=== PATIENT | male | born 1940 | race Caucasian/White ===

== ENCOUNTER 2018-02-16 19:49 | Inpatient (IN) | payer MEDICARE, BC, OTHER ==
[2018-02-16 20:41] LABS: BASO % 0.2 % (0.0-1.0); EOS % 0.2 % (0.0-3.0); HEMATOCRIT 28.6 % (42.0-52.0); HEMOGLOBIN 9.4 g/dl (13.5-17.5); IMMATURE GRANULOCYTE % 0.6 % (0-3.0); LYMPH # 1.4 10^3/uL (1.5-4.5); LYMPH % 11.5 % (24.0-44.0); MEAN CORPUSCULAR HEMOGLOBIN 28.7 pg (27.0-33.0); MEAN CORPUSCULAR HGB CONC 32.9 g/dl (32.0-36.5); MEAN CORPUSCULAR VOLUME 87.5 fl (80.0-96.0); NEUTROPHILS # 9.7 10^3/uL (1.8-7.7); NEUTROPHILS % 79.5 % (36.0-66.0); PLATELET COUNT, AUTOMATED 125 10^3/uL (150-450); RED BLOOD COUNT 3.27 10^6/uL (4.30-6.10); RED CELL DISTRIBUTION WIDTH 14.8 % (11.5-14.5); WHITE BLOOD COUNT 12.2 10^3/uL (4.0-10.0)
[2018-02-16 21:02] LABS: ANION GAP 8 MEQ/L (8-16); BLOOD UREA NITROGEN 23 MG/DL (7-18); CALCIUM LEVEL 8.3 MG/DL (8.8-10.2); CARBON DIOXIDE LEVEL 27 MEQ/L (21-32); CHLORIDE LEVEL 103 MEQ/L (98-107); CREATININE FOR GFR 1.55 MG/DL (0.70-1.30); GLOMERULAR FILTRATION RATE 46.3 (>42); GLUCOSE, FASTING 75 MG/DL (70-100); POTASSIUM SERUM 3.7 MEQ/L (3.5-5.1); SODIUM LEVEL 138 MEQ/L (136-145)
[2018-02-16] MEDS: NORCO, ANEXSIA 5/325MG TABLET (HYDROcodone/ACETAMINOPHEN) PO (21:53)
[2018-02-17] MEDS ORDERED: NITROGLYCERIN 0.4 MG SUBL TABLET SL (00:15)
[2018-02-17] MEDS: BICALUTAMIDE 50 MG TAB PO ×2 (01:41→21:20)
[2018-02-17] MEDS: SERTRALINE HCL 50 MG TAB PO ×2 (01:41→21:20)
[2018-02-17] MEDS: GABAPENTIN 100 MG CAP PO ×4 (01:41→21:20)
[2018-02-17] MEDS: METOPROLOL TART 25 MG TABLET PO ×3 (01:44→21:27)
[2018-02-17] MEDS: NORCO, ANEXSIA 5/325MG TABLET (HYDROcodone/ACETAMINOPHEN) PO ×3 (01:45→18:54)
[2018-02-17 06:25] LABS: BEDSIDE GLUCOSE 76 MG/DL (83-110)
[2018-02-17] MEDS ORDERED: GABAPENTIN 100 MG CAP PO (09:00)
[2018-02-17] MEDS ORDERED: GLIMEPIRIDE 2 MG TAB PO (09:00)
[2018-02-17] MEDS: ASPIRIN 81 MG ENTERIC TAB PO (09:24)
[2018-02-17] MEDS: GLIMEPIRIDE 2 MG TAB PO (09:26)
[2018-02-17] MEDS: ATORVASTATIN 10 MG TAB PO (09:27)
[2018-02-17] MEDS: ISOSORBIDE MON. (IMDUR) 30 MG XR TAB PO (09:27)
[2018-02-17 16:11] LABS: HEMATOCRIT 26.2 % (42.0-52.0); HEMOGLOBIN 8.6 g/dl (13.5-17.5); MEAN CORPUSCULAR HEMOGLOBIN 28.4 pg (27.0-33.0); MEAN CORPUSCULAR HGB CONC 32.8 g/dl (32.0-36.5); MEAN CORPUSCULAR VOLUME 86.5 fl (80.0-96.0); PLATELET COUNT, AUTOMATED 127 10^3/uL (150-450); RED BLOOD COUNT 3.03 10^6/uL (4.30-6.10); RED CELL DISTRIBUTION WIDTH 14.9 % (11.5-14.5); WHITE BLOOD COUNT 10.3 10^3/uL (4.0-10.0)
[2018-02-17 16:26] LABS: ANION GAP 9 MEQ/L (8-16); BLOOD UREA NITROGEN 27 MG/DL (7-18); CALCIUM LEVEL 7.9 MG/DL (8.8-10.2); CARBON DIOXIDE LEVEL 28 MEQ/L (21-32); CHLORIDE LEVEL 103 MEQ/L (98-107); GLOMERULAR FILTRATION RATE 38.9 (>42); GLUCOSE, FASTING 104 MG/DL (70-100); SODIUM LEVEL 140 MEQ/L (136-145)
[2018-02-17] MEDS: HEPARIN DRIP 25,000 UNITS in APPROPRIATE DILUENT 1 EA IV (16:48)
[2018-02-17] MEDS: HEPARIN SOD (PORCINE) 5000 UNITS/ML VIAL IV (16:49)
[2018-02-17 21:18] LABS: HEMATOCRIT 25.5 % (42.0-52.0); HEMOGLOBIN 8.3 g/dl (13.5-17.5)
[2018-02-17 22:06] LABS: PARTIAL THROMBOPLASTIN TIME 62.7 SECONDS (25.4-37.6)
[2018-02-18 03:30] LABS: HEMATOCRIT 28.4 % (42.0-52.0); HEMOGLOBIN 8.9 g/dl (13.5-17.5)
[2018-02-18] MEDS: HEPARIN SOD (PORCINE) 5000 UNITS/ML VIAL IV ×2 (04:54→16:12)
[2018-02-18] MEDS: NORCO, ANEXSIA 5/325MG TABLET (HYDROcodone/ACETAMINOPHEN) PO ×3 (04:59→20:52)
[2018-02-18 06:09] LABS: HEMATOCRIT 26.3 % (42.0-52.0); HEMOGLOBIN 8.5 g/dl (13.5-17.5); MEAN CORPUSCULAR HEMOGLOBIN 28.5 pg (27.0-33.0); MEAN CORPUSCULAR HGB CONC 32.3 g/dl (32.0-36.5); MEAN CORPUSCULAR VOLUME 88.3 fl (80.0-96.0); PLATELET COUNT, AUTOMATED 137 10^3/uL (150-450); RED BLOOD COUNT 2.98 10^6/uL (4.30-6.10); RED CELL DISTRIBUTION WIDTH 15.1 % (11.5-14.5)
[2018-02-18 09:32] LABS: HEMATOCRIT 27.4 % (42.0-52.0); HEMOGLOBIN 8.9 g/dl (13.5-17.5)
[2018-02-18] MEDS: ASPIRIN 81 MG ENTERIC TAB PO (09:57)
[2018-02-18] MEDS: GABAPENTIN 100 MG CAP PO ×3 (09:58→20:27)
[2018-02-18] MEDS: ATORVASTATIN 10 MG TAB PO (09:58)
[2018-02-18] MEDS: METOPROLOL TART 25 MG TABLET PO ×2 (09:59→20:28)
[2018-02-18] MEDS: ISOSORBIDE MON. (IMDUR) 30 MG XR TAB PO (09:59)
[2018-02-18] MEDS: GLIMEPIRIDE 2 MG TAB PO (09:59)
[2018-02-18] MEDS: HEPARIN DRIP 25,000 UNITS in APPROPRIATE DILUENT 1 EA IV (13:43)
[2018-02-18 15:31] LABS: HEMOGLOBIN 8.6 g/dl (13.5-17.5)
[2018-02-18 15:45] LABS: PARTIAL THROMBOPLASTIN TIME 57.4 SECONDS (25.4-37.6)
[2018-02-18] MEDS: SERTRALINE HCL 50 MG TAB PO (20:27)
[2018-02-18] MEDS: BICALUTAMIDE 50 MG TAB PO (20:27)
[2018-02-18 21:38] LABS: HEMATOCRIT 24.7 % (42.0-52.0); HEMOGLOBIN 8.1 g/dl (13.5-17.5)
[2018-02-18 21:51] LABS: PARTIAL THROMBOPLASTIN TIME 118.2 SECONDS (25.4-37.6)
[2018-02-19 03:32] LABS: HEMATOCRIT 26.9 % (42.0-52.0); HEMOGLOBIN 8.7 g/dl (13.5-17.5)
[2018-02-19 03:48] LABS: PARTIAL THROMBOPLASTIN TIME 82.8 SECONDS (25.4-37.6)
[2018-02-19] MEDS: HEPARIN DRIP 25,000 UNITS in APPROPRIATE DILUENT 1 EA IV (07:36)
[2018-02-19] MEDS: ASPIRIN 81 MG ENTERIC TAB PO (09:26)
[2018-02-19] MEDS: ATORVASTATIN 10 MG TAB PO (09:26)
[2018-02-19] MEDS: METOPROLOL TART 25 MG TABLET PO ×2 (09:26→21:42)
[2018-02-19] MEDS: GABAPENTIN 100 MG CAP PO ×3 (09:27→21:41)
[2018-02-19] MEDS: ISOSORBIDE MON. (IMDUR) 30 MG XR TAB PO (09:27)
[2018-02-19] MEDS: GLIMEPIRIDE 2 MG TAB PO (09:27)
[2018-02-19 10:39] LABS: HEMATOCRIT 26.7 % (42.0-52.0); HEMOGLOBIN 8.5 g/dl (13.5-17.5)
[2018-02-19 11:06] LABS: PARTIAL THROMBOPLASTIN TIME 58.5 SECONDS (25.4-37.6)
[2018-02-19] MEDS: HEPARIN SOD (PORCINE) 5000 UNITS/ML VIAL IV (12:00)
[2018-02-19] MEDS: NORCO, ANEXSIA 5/325MG TABLET (HYDROcodone/ACETAMINOPHEN) PO ×2 (14:13→21:43)
[2018-02-19 16:36] LABS: HEMATOCRIT 24.7 % (42.0-52.0); HEMOGLOBIN 8.2 g/dl (13.5-17.5)
[2018-02-19] MEDS: BICALUTAMIDE 50 MG TAB PO (21:41)
[2018-02-19] MEDS: SERTRALINE HCL 50 MG TAB PO (21:41)
[2018-02-19 22:33] LABS: HEMATOCRIT 25.5 % (42.0-52.0); HEMOGLOBIN 8.3 g/dl (13.5-17.5)
[2018-02-19 22:46] LABS: PARTIAL THROMBOPLASTIN TIME 83.2 SECONDS (25.4-37.6)
[2018-02-19] MEDS: DEXTROSE 50% 50 ML SYRINGE IV (23:55)
[2018-02-19 23:58] LABS: BEDSIDE GLUCOSE 21 MG/DL (83-110)
[2018-02-19 23:59] LABS: BEDSIDE GLUCOSE 175 MG/DL (83-110)
[2018-02-20] MEDS: HEPARIN DRIP 25,000 UNITS in APPROPRIATE DILUENT 1 EA IV (01:13)
[2018-02-20 05:34] LABS: HEMATOCRIT 26.4 % (42.0-52.0); HEMOGLOBIN 8.5 g/dl (13.5-17.5)
[2018-02-20 05:46] LABS: PARTIAL THROMBOPLASTIN TIME 78.7 SECONDS (25.4-37.6)
[2018-02-20] MEDS ORDERED: GLUCAGON FOR INJ 1 MG VIAL (J1610) SC (06:30)
[2018-02-20 06:39] LABS: BEDSIDE GLUCOSE 23 MG/DL (83-110)
[2018-02-20] MEDS: DEXTROSE 50% 50 ML SYRINGE IV (06:43)
[2018-02-20 06:47] LABS: BEDSIDE GLUCOSE 24 MG/DL (83-110)
[2018-02-20 06:58] LABS: BEDSIDE GLUCOSE CONFIRMATION 33 MG/DL (LESS THAN 200)
[2018-02-20 06:59] LABS: BEDSIDE GLUCOSE 80 MG/DL (83-110)
[2018-02-20] MEDS: HumaLOG INSULIN (NovoLOG) PER UNIT SC ×4 (07:30→20:15)
[2018-02-20] MEDS: ATORVASTATIN 10 MG TAB PO (10:02)
[2018-02-20] MEDS: GLIMEPIRIDE 2 MG TAB PO (10:02)
[2018-02-20] MEDS: ASPIRIN 81 MG ENTERIC TAB PO (10:03)
[2018-02-20] MEDS: GABAPENTIN 100 MG CAP PO ×3 (10:03→20:15)
[2018-02-20] MEDS: METOPROLOL TART 25 MG TABLET PO ×2 (10:03→20:15)
[2018-02-20 11:12] LABS: HEMATOCRIT 25.3 % (42.0-52.0); HEMOGLOBIN 8.1 g/dl (13.5-17.5)
[2018-02-20 11:51] LABS: BEDSIDE GLUCOSE 45 MG/DL (83-110)
[2018-02-20] MEDS: ISOSORBIDE MON. (IMDUR) 30 MG XR TAB PO (12:15)
[2018-02-20 12:24] LABS: BEDSIDE GLUCOSE 48 MG/DL (83-110)
[2018-02-20 12:46] LABS: BEDSIDE GLUCOSE 64 MG/DL (83-110)
[2018-02-20 13:39] LABS: BEDSIDE GLUCOSE 96 MG/DL (83-110)
[2018-02-20 15:41] LABS: HEMOGLOBIN 8.2 g/dl (13.5-17.5)
[2018-02-20] MEDS: GLUCOSE 4 GM CHEW TABLET PO ×2 (17:22→17:28)
[2018-02-20 18:03] LABS: BEDSIDE GLUCOSE 37 MG/DL (83-110)
[2018-02-20 18:05] LABS: BEDSIDE GLUCOSE 37 MG/DL (83-110)
[2018-02-20 18:42] LABS: BEDSIDE GLUCOSE 68 MG/DL (83-110)
[2018-02-20 19:46] LABS: BEDSIDE GLUCOSE 116 MG/DL (83-110)
[2018-02-20] MEDS: D5W/0.45% SODIUM CHLORIDE 1,000 ML IV (20:14)
[2018-02-20] MEDS: SERTRALINE HCL 50 MG TAB PO (20:15)
[2018-02-20] MEDS: BICALUTAMIDE 50 MG TAB PO (20:15)
[2018-02-20 21:49] LABS: HEMATOCRIT 24.2 % (42.0-52.0); HEMOGLOBIN 7.8 g/dl (13.5-17.5)
[2018-02-20 23:45] LABS: BEDSIDE GLUCOSE 153 MG/DL (83-110)
[2018-02-21] MEDS: NORCO, ANEXSIA 5/325MG TABLET (HYDROcodone/ACETAMINOPHEN) PO ×2 (00:13→09:49)
[2018-02-21] MEDS: HEPARIN DRIP 25,000 UNITS in APPROPRIATE DILUENT 1 EA IV (02:56)
[2018-02-21 04:02] LABS: HEMATOCRIT 23.8 % (42.0-52.0); HEMOGLOBIN 7.6 g/dl (13.5-17.5)
[2018-02-21] MEDS: D5W/0.45% SODIUM CHLORIDE 1,000 ML IV (04:28)
[2018-02-21 06:30] LABS: BEDSIDE GLUCOSE 78 MG/DL (83-110)
[2018-02-21] MEDS: HumaLOG INSULIN (NovoLOG) PER UNIT SC ×4 (07:30→20:03)
[2018-02-21 08:54] LABS: HEMATOCRIT 24.5 % (42.0-52.0); HEMOGLOBIN 7.7 g/dl (13.5-17.5)
[2018-02-21] MEDS: ISOSORBIDE MON. (IMDUR) 30 MG XR TAB PO (09:14)
[2018-02-21] MEDS: ATORVASTATIN 10 MG TAB PO (09:15)
[2018-02-21] MEDS: GABAPENTIN 100 MG CAP PO ×3 (09:15→20:21)
[2018-02-21] MEDS: METOPROLOL TART 25 MG TABLET PO ×2 (09:15→20:22)
[2018-02-21] MEDS: ASPIRIN 81 MG ENTERIC TAB PO (09:15)
[2018-02-21 11:47] LABS: BEDSIDE GLUCOSE 141 MG/DL (83-110)
[2018-02-21 15:11] LABS: HEMATOCRIT 23.2 % (42.0-52.0); HEMOGLOBIN 7.6 g/dl (13.5-17.5)
[2018-02-21] MEDS: NS 1,000 ML IV (16:00)
[2018-02-21 17:24] LABS: BEDSIDE GLUCOSE 167 MG/DL (83-110)
[2018-02-21] MEDS: IPRATROPIUM 0.5MG/ALBUTEROL 2.5MG INH SOL UD 3ML (DUONEB)(J7620) NEB (18:03)
[2018-02-21 19:39] LABS: BEDSIDE GLUCOSE 166 MG/DL (83-110)
[2018-02-21] MEDS: BICALUTAMIDE 50 MG TAB PO (20:21)
[2018-02-21] MEDS: SERTRALINE HCL 50 MG TAB PO (20:21)
[2018-02-21 21:53] LABS: IMMEDIATE SPIN CROSSMATCH 1 2
[2018-02-22] MEDS: IPRATROPIUM 0.5MG/ALBUTEROL 2.5MG INH SOL UD 3ML (DUONEB)(J7620) NEB (00:42)
[2018-02-22] MEDS: NORCO, ANEXSIA 5/325MG TABLET (HYDROcodone/ACETAMINOPHEN) PO (01:47)
[2018-02-22 02:47] LABS: HEMATOCRIT 27.1 % (42.0-52.0); HEMOGLOBIN 8.9 g/dl (13.5-17.5)
[2018-02-22] MEDS: D5W/0.45% SODIUM CHLORIDE 1,000 ML IV ×2 (05:17→21:56)
[2018-02-22 05:51] LABS: BEDSIDE GLUCOSE 176 MG/DL (83-110)
[2018-02-22 07:48] LABS: BEDSIDE GLUCOSE 205 MG/DL (83-110)
[2018-02-22] MEDS: HumaLOG INSULIN (NovoLOG) PER UNIT SC ×4 (09:04→21:00)
[2018-02-22] MEDS: ISOSORBIDE MON. (IMDUR) 30 MG XR TAB PO (09:05)
[2018-02-22] MEDS: GABAPENTIN 100 MG CAP PO ×3 (09:05→21:56)
[2018-02-22] MEDS: ATORVASTATIN 10 MG TAB PO (09:05)
[2018-02-22] MEDS: METOPROLOL TART 25 MG TABLET PO ×2 (09:05→21:56)
[2018-02-22] MEDS: ASPIRIN 81 MG ENTERIC TAB PO (09:05)
[2018-02-22 09:51] LABS: HEMATOCRIT 28.5 % (42.0-52.0); HEMOGLOBIN 9.3 g/dl (13.5-17.5)
[2018-02-22 11:55] LABS: BEDSIDE GLUCOSE 164 MG/DL (83-110)
[2018-02-22 15:10] LABS: HEMATOCRIT 26.8 % (42.0-52.0)
[2018-02-22] MEDS: NS 1,000 ML IV (15:38)
[2018-02-22 17:14] LABS: BEDSIDE GLUCOSE 143 MG/DL (83-110)
[2018-02-22 21:29] LABS: HEMATOCRIT 26.7 % (42.0-52.0); HEMOGLOBIN 8.7 g/dl (13.5-17.5)
[2018-02-22] MEDS: SERTRALINE HCL 50 MG TAB PO (21:55)
[2018-02-22] MEDS: BICALUTAMIDE 50 MG TAB PO (21:57)
[2018-02-22 22:03] LABS: BEDSIDE GLUCOSE 150 MG/DL (83-110)
[2018-02-23 05:23] LABS: HEMATOCRIT 27.8 % (42.0-52.0)
[2018-02-23 08:13] LABS: BEDSIDE GLUCOSE 123 MG/DL (83-110)
[2018-02-23] MEDS: ASPIRIN 81 MG ENTERIC TAB PO (09:23)
[2018-02-23] MEDS: GABAPENTIN 100 MG CAP PO ×3 (09:23→20:43)
[2018-02-23] MEDS: ATORVASTATIN 10 MG TAB PO (09:23)
[2018-02-23] MEDS: HumaLOG INSULIN (NovoLOG) PER UNIT SC ×4 (09:24→21:00)
[2018-02-23] MEDS: METOPROLOL TART 25 MG TABLET PO ×2 (09:24→20:44)
[2018-02-23] MEDS: ISOSORBIDE MON. (IMDUR) 30 MG XR TAB PO (09:24)
[2018-02-23 10:18] LABS: HEMATOCRIT 28.5 % (42.0-52.0); HEMOGLOBIN 9.2 g/dl (13.5-17.5)
[2018-02-23 11:35] LABS: BEDSIDE GLUCOSE 137 MG/DL (83-110)
[2018-02-23] MEDS: NORCO, ANEXSIA 5/325MG TABLET (HYDROcodone/ACETAMINOPHEN) PO ×2 (12:10→20:42)
[2018-02-23] MEDS: D5W/0.45% SODIUM CHLORIDE 1,000 ML IV (14:40)
[2018-02-23 16:05] LABS: HEMATOCRIT 26.2 % (42.0-52.0); HEMOGLOBIN 8.7 g/dl (13.5-17.5)
[2018-02-23 17:06] LABS: BEDSIDE GLUCOSE 163 MG/DL (83-110)
[2018-02-23] MEDS: NS 1,000 ML IV (18:09)
[2018-02-23] MEDS: BICALUTAMIDE 50 MG TAB PO (20:42)
[2018-02-23] MEDS: SERTRALINE HCL 50 MG TAB PO (20:43)
[2018-02-23 21:24] LABS: BEDSIDE GLUCOSE 157 MG/DL (83-110)
[2018-02-23 21:24] LABS: HEMATOCRIT 27.4 % (42.0-52.0); HEMOGLOBIN 8.7 g/dl (13.5-17.5)
[2018-02-24 03:44] LABS: HEMATOCRIT 28.3 % (42.0-52.0)
[2018-02-24 05:49] LABS: BEDSIDE GLUCOSE 100 MG/DL (83-110)
[2018-02-24] MEDS: HumaLOG INSULIN (NovoLOG) PER UNIT SC ×4 (07:30→20:35)
[2018-02-24] MEDS: ATORVASTATIN 10 MG TAB PO (08:49)
[2018-02-24] MEDS: GABAPENTIN 100 MG CAP PO ×3 (08:49→20:34)
[2018-02-24] MEDS: ASPIRIN 81 MG ENTERIC TAB PO (08:49)
[2018-02-24] MEDS: ISOSORBIDE MON. (IMDUR) 30 MG XR TAB PO (08:52)
[2018-02-24] MEDS: METOPROLOL TART 25 MG TABLET PO ×2 (08:52→20:34)
[2018-02-24 09:32] LABS: HEMATOCRIT 28.9 % (42.0-52.0); HEMOGLOBIN 9.3 g/dl (13.5-17.5)
[2018-02-24 11:50] LABS: BEDSIDE GLUCOSE 112 MG/DL (83-110)
[2018-02-24 15:51] LABS: HEMATOCRIT 27.1 % (42.0-52.0); HEMOGLOBIN 8.6 g/dl (13.5-17.5)
[2018-02-24 16:58] LABS: BEDSIDE GLUCOSE 98 MG/DL (83-110)
[2018-02-24 20:06] LABS: BEDSIDE GLUCOSE 154 MG/DL (83-110)
[2018-02-24] MEDS: NORCO, ANEXSIA 5/325MG TABLET (HYDROcodone/ACETAMINOPHEN) PO (20:35)
[2018-02-24] MEDS: SERTRALINE HCL 50 MG TAB PO (20:35)
[2018-02-24] MEDS: BICALUTAMIDE 50 MG TAB PO (20:35)
[2018-02-24 21:00] LABS: HEMATOCRIT 26.3 % (42.0-52.0); HEMOGLOBIN 8.6 g/dl (13.5-17.5)
[2018-02-25 06:55] LABS: HEMATOCRIT 27.5 % (42.0-52.0); HEMOGLOBIN 8.8 g/dl (13.5-17.5); MEAN CORPUSCULAR HEMOGLOBIN 28.1 pg (27.0-33.0); MEAN CORPUSCULAR VOLUME 87.9 fl (80.0-96.0); PLATELET COUNT, AUTOMATED 221 10^3/uL (150-450); RED BLOOD COUNT 3.13 10^6/uL (4.30-6.10); RED CELL DISTRIBUTION WIDTH 15.9 % (11.5-14.5); WHITE BLOOD COUNT 13.7 10^3/uL (4.0-10.0)
[2018-02-25 07:20] LABS: ALBUMIN 2.3 GM/DL (3.2-5.2); ALBUMIN/GLOBULIN RATIO 0.52 (1.00-1.93); ALKALINE PHOSPHATASE 42 U/L (45-117); ALT/SGPT 69 U/L (12-78); ANION GAP 8 MEQ/L (8-16); AST/SGOT 102 U/L (7-37); BLOOD UREA NITROGEN 31 MG/DL (7-18); CALCIUM LEVEL 8.1 MG/DL (8.8-10.2); CARBON DIOXIDE LEVEL 24 MEQ/L (21-32); CHLORIDE LEVEL 105 MEQ/L (98-107); CREATININE FOR GFR 1.55 MG/DL (0.70-1.30); GLOMERULAR FILTRATION RATE 46.3 (>42); GLUCOSE, FASTING 110 MG/DL (70-100); POTASSIUM SERUM 4.3 MEQ/L (3.5-5.1); SODIUM LEVEL 137 MEQ/L (136-145); TOTAL PROTEIN 6.7 GM/DL (6.4-8.2)
[2018-02-25] MEDS: HumaLOG INSULIN (NovoLOG) PER UNIT SC ×4 (09:06→21:00)
[2018-02-25] MEDS: ASPIRIN 81 MG ENTERIC TAB PO (09:07)
[2018-02-25] MEDS: ATORVASTATIN 10 MG TAB PO (09:07)
[2018-02-25] MEDS: GABAPENTIN 100 MG CAP PO ×3 (09:07→21:11)
[2018-02-25] MEDS: ISOSORBIDE MON. (IMDUR) 30 MG XR TAB PO (09:07)
[2018-02-25] MEDS: METOPROLOL TART 25 MG TABLET PO ×2 (09:07→21:12)
[2018-02-25 12:15] LABS: BEDSIDE GLUCOSE 130 MG/DL (83-110)
[2018-02-25 17:04] LABS: BEDSIDE GLUCOSE 107 MG/DL (83-110)
[2018-02-25] MEDS: NORCO, ANEXSIA 5/325MG TABLET (HYDROcodone/ACETAMINOPHEN) PO ×2 (17:28→21:11)
[2018-02-25 20:59] LABS: BEDSIDE GLUCOSE 102 MG/DL (83-110)
[2018-02-25] MEDS: SENNA 8.6 MG TAB (SENOKOT) PO (21:00)
[2018-02-25] MEDS: DOCUSATE SODIUM 100 MG CAP PO (21:00)
[2018-02-25] MEDS: BICALUTAMIDE 50 MG TAB PO (21:10)
[2018-02-25] MEDS: SERTRALINE HCL 50 MG TAB PO (21:11)
[2018-02-26 06:28] LABS: BEDSIDE GLUCOSE 102 MG/DL (83-110)
[2018-02-26] MEDS: HumaLOG INSULIN (NovoLOG) PER UNIT SC ×4 (07:30→21:00)
[2018-02-26 07:36] LABS: HEMATOCRIT 29.1 % (42.0-52.0); HEMOGLOBIN 9.2 g/dl (13.5-17.5); MEAN CORPUSCULAR HEMOGLOBIN 27.9 pg (27.0-33.0); MEAN CORPUSCULAR HGB CONC 31.6 g/dl (32.0-36.5); MEAN CORPUSCULAR VOLUME 88.2 fl (80.0-96.0); PLATELET COUNT, AUTOMATED 214 10^3/uL (150-450); RED CELL DISTRIBUTION WIDTH 15.9 % (11.5-14.5); WHITE BLOOD COUNT 14.4 10^3/uL (4.0-10.0)
[2018-02-26 07:57] LABS: ANION GAP 9 MEQ/L (8-16); BLOOD UREA NITROGEN 27 MG/DL (7-18); CALCIUM LEVEL 8.3 MG/DL (8.8-10.2); CARBON DIOXIDE LEVEL 24 MEQ/L (21-32); CHLORIDE LEVEL 105 MEQ/L (98-107); CREATININE FOR GFR 1.46 MG/DL (0.70-1.30); GLOMERULAR FILTRATION RATE 49.6 (>42); GLUCOSE, FASTING 99 MG/DL (70-100); POTASSIUM SERUM 4.5 MEQ/L (3.5-5.1); SODIUM LEVEL 138 MEQ/L (136-145)
[2018-02-26] MEDS: DOCUSATE SODIUM 100 MG CAP PO ×2 (08:57→21:44)
[2018-02-26] MEDS: METOPROLOL TART 25 MG TABLET PO ×2 (08:57→21:45)
[2018-02-26] MEDS: ASPIRIN 81 MG ENTERIC TAB PO (08:57)
[2018-02-26] MEDS: GABAPENTIN 100 MG CAP PO ×3 (08:57→21:44)
[2018-02-26] MEDS: ISOSORBIDE MON. (IMDUR) 30 MG XR TAB PO (08:57)
[2018-02-26] MEDS: ATORVASTATIN 10 MG TAB PO (08:57)
[2018-02-26] MEDS: NORCO, ANEXSIA 5/325MG TABLET (HYDROcodone/ACETAMINOPHEN) PO (10:49)
[2018-02-26 11:58] LABS: BEDSIDE GLUCOSE 121 MG/DL (83-110)
[2018-02-26 16:53] LABS: BEDSIDE GLUCOSE 93 MG/DL (83-110)
[2018-02-26 20:37] LABS: BEDSIDE GLUCOSE 190 MG/DL (83-110)
[2018-02-26] MEDS: BICALUTAMIDE 50 MG TAB PO (21:44)
[2018-02-26] MEDS: SERTRALINE HCL 50 MG TAB PO (21:44)
[2018-02-26] MEDS: SENNA 8.6 MG TAB (SENOKOT) PO (21:44)
[2018-02-27] MEDS: HumaLOG INSULIN (NovoLOG) PER UNIT SC ×4 (07:30→20:30)
[2018-02-27 08:03] LABS: BEDSIDE GLUCOSE 130 MG/DL (83-110)
[2018-02-27] MEDS: GABAPENTIN 100 MG CAP PO ×3 (09:00→20:30)
[2018-02-27] MEDS: DOCUSATE SODIUM 100 MG CAP PO ×2 (09:00→20:29)
[2018-02-27] MEDS: ASPIRIN 81 MG ENTERIC TAB PO (09:49)
[2018-02-27] MEDS: ATORVASTATIN 10 MG TAB PO (09:50)
[2018-02-27] MEDS: METOPROLOL TART 25 MG TABLET PO ×2 (09:50→20:30)
[2018-02-27] MEDS: ISOSORBIDE MON. (IMDUR) 30 MG XR TAB PO (09:50)
[2018-02-27] MEDS ORDERED: HEPARIN 1,000 UNITS/ML 10ML VIAL (FOR RADIOLOGY& DIALYSIS ONLY) As Ordered (10:08)
[2018-02-27] MEDS ORDERED: ISOVUE-300 61% 50ML VIAL (Q9967) As Ordered (10:09)
[2018-02-27 12:29] LABS: BEDSIDE GLUCOSE 118 MG/DL (83-110)
[2018-02-27] MEDS: PIPERACILLIN/TAZOBACTAM SOD 3.375 GM in D5W MINI-BAG PLUS 50 ML IV ×2 (12:42→18:56)
[2018-02-27] MEDS: NS 0.45% 1,000 ML IV (12:42)
[2018-02-27 16:32] LABS: BEDSIDE GLUCOSE 131 MG/DL (83-110)
[2018-02-27 20:17] LABS: BEDSIDE GLUCOSE 144 MG/DL (83-110)
[2018-02-27] MEDS: SENNA 8.6 MG TAB (SENOKOT) PO (20:30)
[2018-02-27] MEDS: BICALUTAMIDE 50 MG TAB PO (20:30)
[2018-02-27] MEDS: SERTRALINE HCL 50 MG TAB PO (20:30)
[2018-02-28] MEDS: PIPERACILLIN/TAZOBACTAM SOD 3.375 GM in D5W MINI-BAG PLUS 50 ML IV ×3 (02:19→18:41)
[2018-02-28 06:05] LABS: BEDSIDE GLUCOSE 129 MG/DL (83-110)
[2018-02-28] MEDS: GABAPENTIN 100 MG CAP PO ×3 (09:03→21:26)
[2018-02-28] MEDS: HumaLOG INSULIN (NovoLOG) PER UNIT SC ×4 (09:03→21:00)
[2018-02-28] MEDS: ASPIRIN 81 MG ENTERIC TAB PO (09:04)
[2018-02-28] MEDS: METOPROLOL TART 25 MG TABLET PO ×2 (09:04→21:27)
[2018-02-28] MEDS: DOCUSATE SODIUM 100 MG CAP PO ×2 (09:04→21:26)
[2018-02-28] MEDS: ATORVASTATIN 10 MG TAB PO (09:04)
[2018-02-28] MEDS: ISOSORBIDE MON. (IMDUR) 30 MG XR TAB PO (09:04)
[2018-02-28 11:40] LABS: BEDSIDE GLUCOSE 160 MG/DL (83-110)
[2018-02-28 16:54] LABS: BEDSIDE GLUCOSE 128 MG/DL (83-110)
[2018-02-28] MEDS: NORCO, ANEXSIA 5/325MG TABLET (HYDROcodone/ACETAMINOPHEN) PO (18:41)
[2018-02-28 20:02] LABS: BEDSIDE GLUCOSE 124 MG/DL (83-110)
[2018-02-28] MEDS: SENNA 8.6 MG TAB (SENOKOT) PO (21:26)
[2018-02-28] MEDS: SERTRALINE HCL 50 MG TAB PO (21:26)
[2018-02-28] MEDS: BICALUTAMIDE 50 MG TAB PO (21:26)
[2018-03-01] MEDS: NORCO, ANEXSIA 5/325MG TABLET (HYDROcodone/ACETAMINOPHEN) PO ×3 (01:07→15:21)
[2018-03-01] MEDS: PIPERACILLIN/TAZOBACTAM SOD 3.375 GM in D5W MINI-BAG PLUS 50 ML IV ×3 (03:59→18:39)
[2018-03-01 06:01] LABS: BEDSIDE GLUCOSE 115 MG/DL (83-110)
[2018-03-01] MEDS: HumaLOG INSULIN (NovoLOG) PER UNIT SC ×4 (07:30→20:42)
[2018-03-01] MEDS: GABAPENTIN 100 MG CAP PO ×3 (10:46→20:42)
[2018-03-01] MEDS: ISOSORBIDE MON. (IMDUR) 30 MG XR TAB PO (10:47)
[2018-03-01] MEDS: ATORVASTATIN 10 MG TAB PO (10:47)
[2018-03-01] MEDS: ASPIRIN 81 MG ENTERIC TAB PO (10:47)
[2018-03-01] MEDS: DOCUSATE SODIUM 100 MG CAP PO ×2 (10:48→20:42)
[2018-03-01] MEDS: METOPROLOL TART 25 MG TABLET PO ×2 (10:48→20:42)
[2018-03-01 11:56] LABS: BEDSIDE GLUCOSE 154 MG/DL (83-110)
[2018-03-01 16:54] LABS: BEDSIDE GLUCOSE 120 MG/DL (83-110)
[2018-03-01 20:32] LABS: BEDSIDE GLUCOSE 118 MG/DL (83-110)
[2018-03-01] MEDS: SENNA 8.6 MG TAB (SENOKOT) PO (20:42)
[2018-03-01] MEDS: SERTRALINE HCL 50 MG TAB PO (20:42)
[2018-03-01] MEDS: BICALUTAMIDE 50 MG TAB PO (20:42)
[2018-03-02] MEDS: PIPERACILLIN/TAZOBACTAM SOD 3.375 GM in D5W MINI-BAG PLUS 50 ML IV ×4 (03:59→20:11)
[2018-03-02 06:15] LABS: BEDSIDE GLUCOSE 105 MG/DL (83-110)
[2018-03-02] MEDS: HumaLOG INSULIN (NovoLOG) PER UNIT SC ×4 (06:58→20:09)
[2018-03-02] MEDS: ASPIRIN 81 MG ENTERIC TAB PO (10:57)
[2018-03-02] MEDS: GABAPENTIN 100 MG CAP PO ×3 (10:57→20:08)
[2018-03-02] MEDS: METOPROLOL TART 25 MG TABLET PO ×2 (10:57→20:09)
[2018-03-02] MEDS: DOCUSATE SODIUM 100 MG CAP PO ×2 (10:57→20:08)
[2018-03-02] MEDS: NORCO, ANEXSIA 5/325MG TABLET (HYDROcodone/ACETAMINOPHEN) PO ×2 (10:58→20:09)
[2018-03-02] MEDS: ISOSORBIDE MON. (IMDUR) 30 MG XR TAB PO (10:58)
[2018-03-02] MEDS: ATORVASTATIN 10 MG TAB PO (10:58)
[2018-03-02 12:12] LABS: BEDSIDE GLUCOSE 131 MG/DL (83-110)
[2018-03-02] MEDS ORDERED: LIDOCAINE 2% INJ 100 MG/5 ML SDV (FOR ANES.) As Ordered (16:50)
[2018-03-02] MEDS ORDERED: dexameTHASONE 4 MG/ML 1ML VIAL (J1100) As Ordered (16:50)
[2018-03-02] MEDS ORDERED: ONDANSETRON 4MG/2ML VIAL (J2405) As Ordered (16:50)
[2018-03-02] MEDS ORDERED: PROPOFOL 200 MG/20 ML VIAL As Ordered (16:50)
[2018-03-02] MEDS ORDERED: fentaNYL 100 MCG/2 ML INJECTION (J3010) As Ordered (16:51)
[2018-03-02] MEDS ORDERED: MIDAZOLAM INJ 2 MG/2 ML VIAL (J2250) As Ordered (16:51)
[2018-03-02 19:14] LABS: BEDSIDE GLUCOSE 103 MG/DL (83-110)
[2018-03-02] MEDS ORDERED: fentaNYL 100 MCG/2 ML INJECTION (J3010) IV (19:15)
[2018-03-02] MEDS: LR 1,000 ML IV (19:15)
[2018-03-02] MEDS ORDERED: ONDANSETRON 4MG/2ML VIAL (J2405) IV (19:15)
[2018-03-02] MEDS: BICALUTAMIDE 50 MG TAB PO (20:08)
[2018-03-02] MEDS: SERTRALINE HCL 50 MG TAB PO (20:08)
[2018-03-02] MEDS: SENNA 8.6 MG TAB (SENOKOT) PO (20:08)
[2018-03-02 20:12] LABS: BEDSIDE GLUCOSE 99 MG/DL (83-110)
[2018-03-03] MEDS: NORCO, ANEXSIA 5/325MG TABLET (HYDROcodone/ACETAMINOPHEN) PO ×4 (00:01→22:03)
[2018-03-03] MEDS ORDERED: NORCO, ANEXSIA 5/325MG TABLET (HYDROcodone/ACETAMINOPHEN) As Ordered (00:58)
[2018-03-03] MEDS: PIPERACILLIN/TAZOBACTAM SOD 3.375 GM in D5W MINI-BAG PLUS 50 ML IV ×3 (03:06→18:02)
[2018-03-03 05:37] LABS: BEDSIDE GLUCOSE 107 MG/DL (83-110)
[2018-03-03] MEDS: HumaLOG INSULIN (NovoLOG) PER UNIT SC ×4 (07:29→21:00)
[2018-03-03] MEDS: ISOSORBIDE MON. (IMDUR) 30 MG XR TAB PO (08:34)
[2018-03-03] MEDS: ASPIRIN 81 MG ENTERIC TAB PO (08:34)
[2018-03-03] MEDS: ATORVASTATIN 10 MG TAB PO (08:34)
[2018-03-03] MEDS: GABAPENTIN 100 MG CAP PO ×3 (08:35→22:02)
[2018-03-03] MEDS: METOPROLOL TART 25 MG TABLET PO ×2 (08:35→22:04)
[2018-03-03] MEDS: DOCUSATE SODIUM 100 MG CAP PO ×2 (08:35→22:02)
[2018-03-03 11:44] LABS: BEDSIDE GLUCOSE 137 MG/DL (83-110)
[2018-03-03 16:42] LABS: BEDSIDE GLUCOSE 164 MG/DL (83-110)
[2018-03-03 21:10] LABS: BEDSIDE GLUCOSE 209 MG/DL (83-110)
[2018-03-03] MEDS: SENNA 8.6 MG TAB (SENOKOT) PO (22:02)
[2018-03-03] MEDS: SERTRALINE HCL 50 MG TAB PO (22:03)
[2018-03-03] MEDS: BICALUTAMIDE 50 MG TAB PO (22:06)
[2018-03-04] MEDS: PIPERACILLIN/TAZOBACTAM SOD 3.375 GM in D5W MINI-BAG PLUS 50 ML IV ×3 (02:37→18:12)
[2018-03-04] MEDS: NORCO, ANEXSIA 5/325MG TABLET (HYDROcodone/ACETAMINOPHEN) PO ×2 (06:10→20:33)
[2018-03-04] MEDS: HumaLOG INSULIN (NovoLOG) PER UNIT SC ×4 (07:30→20:35)
[2018-03-04] MEDS: ISOSORBIDE MON. (IMDUR) 30 MG XR TAB PO (08:43)
[2018-03-04] MEDS: DOCUSATE SODIUM 100 MG CAP PO ×2 (08:43→20:32)
[2018-03-04] MEDS: ASPIRIN 81 MG ENTERIC TAB PO (08:43)
[2018-03-04] MEDS: GABAPENTIN 100 MG CAP PO ×3 (08:43→20:33)
[2018-03-04] MEDS: METOPROLOL TART 25 MG TABLET PO ×2 (08:43→20:35)
[2018-03-04] MEDS: ATORVASTATIN 10 MG TAB PO (08:43)
[2018-03-04] MEDS: SENNA 8.6 MG TAB (SENOKOT) PO (20:32)
[2018-03-04] MEDS: SERTRALINE HCL 50 MG TAB PO (20:32)
[2018-03-04] MEDS: BICALUTAMIDE 50 MG TAB PO (20:35)
[2018-03-05 02:21] LABS: BEDSIDE GLUCOSE 135 MG/DL (83-110)
[2018-03-05 02:21] LABS: BEDSIDE GLUCOSE 135 MG/DL (83-110)
[2018-03-05 02:21] LABS: BEDSIDE GLUCOSE 137 MG/DL (83-110)
[2018-03-05 02:21] LABS: BEDSIDE GLUCOSE 141 MG/DL (83-110)
[2018-03-05 02:21] LABS: BEDSIDE GLUCOSE 144 MG/DL (83-110)
[2018-03-05] MEDS: PIPERACILLIN/TAZOBACTAM SOD 3.375 GM in D5W MINI-BAG PLUS 50 ML IV ×2 (02:37→11:26)
[2018-03-05 05:32] LABS: BEDSIDE GLUCOSE 130 MG/DL (83-110)
[2018-03-05] MEDS: HumaLOG INSULIN (NovoLOG) PER UNIT SC ×2 (08:54→12:17)
[2018-03-05] MEDS: ISOSORBIDE MON. (IMDUR) 30 MG XR TAB PO (08:54)
[2018-03-05] MEDS: GABAPENTIN 100 MG CAP PO ×2 (08:54→15:06)
[2018-03-05] MEDS: METOPROLOL TART 25 MG TABLET PO (08:54)
[2018-03-05] MEDS: ATORVASTATIN 10 MG TAB PO (08:54)
[2018-03-05] MEDS: ASPIRIN 81 MG ENTERIC TAB PO (08:55)
[2018-03-05] MEDS: DOCUSATE SODIUM 100 MG CAP PO (08:55)
[2018-03-05] MEDS: NORCO, ANEXSIA 5/325MG TABLET (HYDROcodone/ACETAMINOPHEN) PO (08:55)
[2018-03-05 11:33] LABS: BEDSIDE GLUCOSE 124 MG/DL (83-110)
== END 2018-03-05 16:15 | disposition other institution (70) | DRG 240 ==
LOC: M MS5PR 02-22 15:20 → M MSPAV 19:49 → M MS4PR 02-19 17:19
PROC: 0Y6H0Z3 Detachment at Right Lower Leg, Low, Open Approach (ICD-10-PCS; 2018-03-02 15:30)
PROC: 047K3ZZ Dilation of Right Femoral Artery, Percutaneous Approach (ICD-10-PCS; principal; 2018-03-02 17:51)
PROC: B41FYZZ Fluoroscopy of Right Lower Extremity Arteries using Other Contrast (ICD-10-PCS; 2018-03-02 17:51)
PROC: 30233N1 Transfusion of Nonautologous Red Blood Cells into Peripheral Vein, Percutaneous Approach (ICD-10-PCS; 2018-03-02 17:51)
DX: T82.868A Thrombosis due to vascular prosthetic devices, implants and grafts, initial encounter (principal); E11.52 Type 2 diabetes mellitus with diabetic peripheral angiopathy with gangrene; I70.92 Chronic total occlusion of artery of the extremities; I70.261 Atherosclerosis of native arteries of extremities with gangrene, right leg; L03.115 Cellulitis of right lower limb; E11.59 Type 2 diabetes mellitus with other circulatory complications; E11.618 Type 2 diabetes mellitus with other diabetic arthropathy; E11.29 Type 2 diabetes mellitus with other diabetic kidney complication; I48.91 Unspecified atrial fibrillation; I50.9 Heart failure, unspecified; I25.10 Atherosclerotic heart disease of native coronary artery without angina pectoris; I25.2 Old myocardial infarction; I73.9 Peripheral vascular disease, unspecified; K21.9 Gastro-esophageal reflux disease without esophagitis; Z85.038 Personal history of other malignant neoplasm of large intestine; Z85.46 Personal history of malignant neoplasm of prostate; Y83.2 Surgical operation with anastomosis, bypass or graft as the cause of abnormal reaction of the patient, or of later complication, without mention of misadventure at the time of the procedure

== ENCOUNTER 2018-03-05 16:25 | Inpatient (IN) | payer MEDICARE, BC, OTHER ==
[~2018-03-05 16:25] MED LIST: BISACODYL 10 MG SUPP PR; BISACODYL 5 MG TAB PO; FLEET ENEMA PR; GLUCAGON FOR INJ 1 MG VIAL (J1610) SC; IPRATROPIUM 0.5MG/ALBUTEROL 2.5MG INH SOL UD 3ML (DUONEB)(J7620) NEB; MOM 30ML SUSPENSION UDC PO; NITROGLYCERIN 0.4 MG SUBL TABLET SL; ONDANSETRON 4 MG TAB (S0181) PO; ONDANSETRON 4MG/2ML VIAL (J2405) IM; SIMETHICONE 80 MG CHEW TAB PO
[2018-03-05 16:46] LABS: BEDSIDE GLUCOSE 120 MG/DL (83-110)
[2018-03-05] MEDS: NORCO, ANEXSIA 5/325MG TABLET (HYDROcodone/ACETAMINOPHEN) PO (17:32)
[2018-03-05] MEDS: HumaLOG INSULIN (NovoLOG) PER UNIT SC ×2 (17:32→21:00)
[2018-03-05 19:59] LABS: BEDSIDE GLUCOSE 157 MG/DL (83-110)
[2018-03-05] MEDS: BICALUTAMIDE 50 MG TAB PO (21:40)
[2018-03-05] MEDS: DOCUSATE SODIUM 100 MG CAP PO (21:40)
[2018-03-05] MEDS: SENNA 8.6 MG TAB (SENOKOT) PO (21:40)
[2018-03-05] MEDS: SERTRALINE HCL 50 MG TAB PO (21:40)
[2018-03-05] MEDS: METOPROLOL TART 25 MG TABLET PO (21:41)
[2018-03-05] MEDS: GABAPENTIN 100 MG CAP PO (21:41)
[2018-03-05] MEDS: HEPARIN SOD (PORCINE) 5000 UNITS/ML VIAL SC (21:42)
[2018-03-06 05:44] LABS: BEDSIDE GLUCOSE 139 MG/DL (83-110)
[2018-03-06 07:17] LABS: BASO % 0.3 % (0.0-1.0); EOS # 0.2 10^3/uL (0.0-0.50); EOS % 1.8 % (0.0-3.0); HEMATOCRIT 28.6 % (42.0-52.0); HEMOGLOBIN 9.2 g/dl (13.5-17.5); IMMATURE GRANULOCYTE % 0.6 % (0-3.0); LYMPH # 1.7 10^3/uL (1.5-4.5); LYMPH % 16.6 % (24.0-44.0); MEAN CORPUSCULAR HEMOGLOBIN 27.8 pg (27.0-33.0); MEAN CORPUSCULAR HGB CONC 32.2 g/dl (32.0-36.5); MEAN CORPUSCULAR VOLUME 86.4 fl (80.0-96.0); MONO # 0.7 10^3/uL (0.0-0.8); MONO % 6.8 % (0.0-5.0); NEUTROPHILS # 7.3 10^3/uL (1.8-7.7); NEUTROPHILS % 73.9 % (36.0-66.0); PLATELET COUNT, AUTOMATED 199 10^3/uL (150-450); RED BLOOD COUNT 3.31 10^6/uL (4.30-6.10); RED CELL DISTRIBUTION WIDTH 16.6 % (11.5-14.5); WHITE BLOOD COUNT 9.9 10^3/uL (4.0-10.0)
[2018-03-06 07:58] LABS: ALBUMIN/GLOBULIN RATIO 0.45 (1.00-1.93); ALKALINE PHOSPHATASE 27 U/L (45-117); ALT/SGPT 32 U/L (12-78); ANION GAP 11 MEQ/L (8-16); AST/SGOT 34 U/L (7-37); BILIRUBIN,TOTAL 0.6 MG/DL (0.2-1.0); BLOOD UREA NITROGEN 17 MG/DL (7-18); CALCIUM LEVEL 8.2 MG/DL (8.8-10.2); CARBON DIOXIDE LEVEL 22 MEQ/L (21-32); CHLORIDE LEVEL 108 MEQ/L (98-107); CREATININE FOR GFR 1.25 MG/DL (0.70-1.30); GLOMERULAR FILTRATION RATE 59.3 (>42); GLUCOSE, FASTING 128 MG/DL (70-100); POTASSIUM SERUM 4.3 MEQ/L (3.5-5.1); SODIUM LEVEL 141 MEQ/L (136-145); TOTAL PROTEIN 6.4 GM/DL (6.4-8.2)
[2018-03-06] MEDS: HumaLOG INSULIN (NovoLOG) PER UNIT SC ×4 (08:43→21:00)
[2018-03-06] MEDS: HEPARIN SOD (PORCINE) 5000 UNITS/ML VIAL SC ×2 (08:43→21:14)
[2018-03-06] MEDS: ATORVASTATIN 10 MG TAB PO (08:44)
[2018-03-06] MEDS: FUROSEMIDE 20 MG TAB PO (08:44)
[2018-03-06] MEDS: METOPROLOL TART 25 MG TABLET PO ×2 (08:44→21:13)
[2018-03-06] MEDS: GLIMEPIRIDE 2 MG TAB PO (08:44)
[2018-03-06] MEDS: ASPIRIN 81 MG ENTERIC TAB PO (08:44)
[2018-03-06] MEDS: ISOSORBIDE MON. (IMDUR) 30 MG XR TAB PO (08:45)
[2018-03-06] MEDS: DOCUSATE SODIUM 100 MG CAP PO ×2 (08:45→21:13)
[2018-03-06] MEDS: GABAPENTIN 100 MG CAP PO ×3 (08:45→21:14)
[2018-03-06 11:36] LABS: BEDSIDE GLUCOSE 108 MG/DL (83-110)
[2018-03-06 16:29] LABS: BEDSIDE GLUCOSE 83 MG/DL (83-110)
[2018-03-06 20:47] LABS: BEDSIDE GLUCOSE 98 MG/DL (83-110)
[2018-03-06] MEDS: BICALUTAMIDE 50 MG TAB PO (21:13)
[2018-03-06] MEDS: SERTRALINE HCL 50 MG TAB PO (21:13)
[2018-03-06] MEDS: SENNA 8.6 MG TAB (SENOKOT) PO (21:14)
[2018-03-06] MEDS: ACETAMINOPHEN 325 MG TAB PO (21:22)
[2018-03-07 06:14] LABS: BEDSIDE GLUCOSE 75 MG/DL (83-110)
[2018-03-07] MEDS: HumaLOG INSULIN (NovoLOG) PER UNIT SC ×4 (07:05→21:00)
[2018-03-07] MEDS: DOCUSATE SODIUM 100 MG CAP PO ×2 (07:41→21:22)
[2018-03-07] MEDS: GLIMEPIRIDE 2 MG TAB PO (08:11)
[2018-03-07] MEDS: GABAPENTIN 100 MG CAP PO ×3 (08:11→21:22)
[2018-03-07] MEDS: HEPARIN SOD (PORCINE) 5000 UNITS/ML VIAL SC ×2 (08:11→21:21)
[2018-03-07] MEDS: ISOSORBIDE MON. (IMDUR) 30 MG XR TAB PO (08:11)
[2018-03-07] MEDS: ASPIRIN 81 MG ENTERIC TAB PO (08:12)
[2018-03-07] MEDS: ATORVASTATIN 10 MG TAB PO (08:12)
[2018-03-07] MEDS: FUROSEMIDE 20 MG TAB PO (08:12)
[2018-03-07] MEDS: METOPROLOL TART 25 MG TABLET PO ×2 (08:12→21:27)
[2018-03-07 11:59] LABS: BEDSIDE GLUCOSE 62 MG/DL (83-110)
[2018-03-07 16:57] LABS: BEDSIDE GLUCOSE 84 MG/DL (83-110)
[2018-03-07] MEDS: NORCO, ANEXSIA 5/325MG TABLET (HYDROcodone/ACETAMINOPHEN) PO (19:38)
[2018-03-07 20:24] LABS: BEDSIDE GLUCOSE 88 MG/DL (83-110)
[2018-03-07] MEDS: BICALUTAMIDE 50 MG TAB PO (21:21)
[2018-03-07] MEDS: SENNA 8.6 MG TAB (SENOKOT) PO (21:22)
[2018-03-07] MEDS: SERTRALINE HCL 50 MG TAB PO (21:22)
[2018-03-08 06:42] LABS: BEDSIDE GLUCOSE 48 MG/DL (83-110)
[2018-03-08 07:03] LABS: BEDSIDE GLUCOSE 54 MG/DL (83-110)
[2018-03-08 07:19] LABS: BEDSIDE GLUCOSE 63 MG/DL (83-110)
[2018-03-08 07:47] LABS: BEDSIDE GLUCOSE 77 MG/DL (83-110)
[2018-03-08] MEDS: HumaLOG INSULIN (NovoLOG) PER UNIT SC ×4 (08:04→20:51)
[2018-03-08] MEDS: HEPARIN SOD (PORCINE) 5000 UNITS/ML VIAL SC ×2 (08:33→20:13)
[2018-03-08] MEDS: ATORVASTATIN 10 MG TAB PO (08:34)
[2018-03-08] MEDS: DOCUSATE SODIUM 100 MG CAP PO ×2 (08:34→20:14)
[2018-03-08] MEDS: FUROSEMIDE 20 MG TAB PO ×2 (08:34→10:39)
[2018-03-08] MEDS: ASPIRIN 81 MG ENTERIC TAB PO (08:34)
[2018-03-08] MEDS: GLIMEPIRIDE 2 MG TAB PO (08:34)
[2018-03-08] MEDS: GABAPENTIN 100 MG CAP PO ×3 (08:34→20:15)
[2018-03-08] MEDS: METOPROLOL TART 25 MG TABLET PO ×2 (10:38→20:15)
[2018-03-08] MEDS: ISOSORBIDE MON. (IMDUR) 30 MG XR TAB PO (10:38)
[2018-03-08 10:46] LABS: BEDSIDE GLUCOSE 93 MG/DL (83-110)
[2018-03-08] MEDS ORDERED: ANALGESIC BALM CRM 120 GM TOP (11:15)
[2018-03-08 11:42] LABS: BEDSIDE GLUCOSE 56 MG/DL (83-110)
[2018-03-08] MEDS: GLUCOSE 4 GM CHEW TABLET PO ×2 (11:45→17:54)
[2018-03-08 12:39] LABS: BEDSIDE GLUCOSE 86 MG/DL (83-110)
[2018-03-08] MEDS: NORCO, ANEXSIA 5/325MG TABLET (HYDROcodone/ACETAMINOPHEN) PO (17:42)
[2018-03-08 17:50] LABS: BEDSIDE GLUCOSE 38 MG/DL (83-110)
[2018-03-08 18:23] LABS: BEDSIDE GLUCOSE 44 MG/DL (83-110)
[2018-03-08 18:42] LABS: BEDSIDE GLUCOSE CONFIRMATION 50 MG/DL (LESS THAN 200)
[2018-03-08 19:06] LABS: BEDSIDE GLUCOSE 172 MG/DL (83-110)
[2018-03-08] MEDS: BICALUTAMIDE 50 MG TAB PO (20:14)
[2018-03-08] MEDS: ACETAMINOPHEN 325 MG TAB PO (20:14)
[2018-03-08] MEDS: SERTRALINE HCL 50 MG TAB PO (20:14)
[2018-03-08] MEDS: SENNA 8.6 MG TAB (SENOKOT) PO (20:14)
[2018-03-08 20:41] LABS: BEDSIDE GLUCOSE 115 MG/DL (83-110)
[2018-03-08 23:02] LABS: BEDSIDE GLUCOSE 75 MG/DL (83-110)
[2018-03-09 01:00] LABS: BEDSIDE GLUCOSE 67 MG/DL (83-110)
[2018-03-09 03:03] LABS: BEDSIDE GLUCOSE 39 MG/DL (83-110)
[2018-03-09 03:41] LABS: BEDSIDE GLUCOSE 364 MG/DL (83-110)
[2018-03-09] MEDS: DEXTROSE 50% 50 ML SYRINGE IV ×3 (03:42→03:49)
[2018-03-09 04:00] LABS: BEDSIDE GLUCOSE CONFIRMATION 47 MG/DL (LESS THAN 200)
[2018-03-09 04:05] LABS: HEMATOCRIT 29.7 % (42.0-52.0); HEMOGLOBIN 9.2 g/dl (13.5-17.5); MEAN CORPUSCULAR HEMOGLOBIN 27.5 pg (27.0-33.0); MEAN CORPUSCULAR VOLUME 88.9 fl (80.0-96.0); PLATELET COUNT, AUTOMATED 193 10^3/uL (150-450); RED BLOOD COUNT 3.34 10^6/uL (4.30-6.10); RED CELL DISTRIBUTION WIDTH 16.8 % (11.5-14.5); WHITE BLOOD COUNT 6.9 10^3/uL (4.0-10.0)
[2018-03-09 04:24] LABS: ESTIMATED AVERAGE GLUCOSE 120 MG/DL (60-110); HEMOGLOBIN A1c 5.8 %
[2018-03-09 04:30] LABS: LACTIC ACID SEPSIS PROTOCOL 1.5 MMOL/L (0.4-2.0)
[2018-03-09 04:30] LABS: ALBUMIN 2.2 GM/DL (3.2-5.2); ALBUMIN/GLOBULIN RATIO 0.52 (1.00-1.93); ALKALINE PHOSPHATASE 30 U/L (45-117); ALT/SGPT 28 U/L (12-78); ANION GAP 8 MEQ/L (8-16); AST/SGOT 25 U/L (7-37); BILIRUBIN,TOTAL 0.5 MG/DL (0.2-1.0); BLOOD UREA NITROGEN 21 MG/DL (7-18); CALCIUM LEVEL 8.1 MG/DL (8.8-10.2); CARBON DIOXIDE LEVEL 28 MEQ/L (21-32); CHLORIDE LEVEL 103 MEQ/L (98-107); CREATININE FOR GFR 1.32 MG/DL (0.70-1.30); GLOMERULAR FILTRATION RATE 55.7 (>42); GLUCOSE, FASTING 138 MG/DL (70-100); POTASSIUM SERUM 3.9 MEQ/L (3.5-5.1); SODIUM LEVEL 139 MEQ/L (136-145); TOTAL PROTEIN 6.4 GM/DL (6.4-8.2)
== END 2018-03-09 04:45 | disposition other institution (70) | DRG 951 ==
LOC: M PM&R 16:25
PROVIDERS: Physical Medicine & Rehabilitation
DX: Z89.511 Acquired absence of right leg below knee (principal); I48.91 Unspecified atrial fibrillation; I50.9 Heart failure, unspecified; I25.10 Atherosclerotic heart disease of native coronary artery without angina pectoris; I11.0 Hypertensive heart disease with heart failure; E89.0 Postprocedural hypothyroidism; F32.9 Major depressive disorder, single episode, unspecified; E11.51 Type 2 diabetes mellitus with diabetic peripheral angiopathy without gangrene; E11.649 Type 2 diabetes mellitus with hypoglycemia without coma; I49.5 Sick sinus syndrome; M25.551 Pain in right hip; M54.5 Low back pain; R53.81 Other malaise; Z85.038 Personal history of other malignant neoplasm of large intestine; Z85.46 Personal history of malignant neoplasm of prostate; Z90.49 Acquired absence of other specified parts of digestive tract; Z95.1 Presence of aortocoronary bypass graft; Z79.82 Long term (current) use of aspirin; Z79.84 Long term (current) use of oral hypoglycemic drugs; Z79.899 Other long term (current) drug therapy; Z79.01 Long term (current) use of anticoagulants; Z98.62 Peripheral vascular angioplasty status; Z95.0 Presence of cardiac pacemaker; I25.2 Old myocardial infarction; Z92.3 Personal history of irradiation

== ENCOUNTER 2018-03-09 04:03 | Inpatient (IN) | payer MEDICARE, BC, OTHER ==
[2018-03-09] MEDS ORDERED: DEXTROSE 50% 50 ML SYRINGE IV (04:15)
[2018-03-09] MEDS ORDERED: ONDANSETRON 4 MG TAB (S0181) PO (04:15)
[2018-03-09] MEDS ORDERED: GLUCAGON FOR INJ 1 MG VIAL (J1610) SC (04:15)
[2018-03-09] MEDS ORDERED: FLEET ENEMA PR (04:15)
[2018-03-09] MEDS ORDERED: IPRATROPIUM 0.5MG/ALBUTEROL 2.5MG INH SOL UD 3ML (DUONEB)(J7620) NEB (04:15)
[2018-03-09] MEDS ORDERED: MOM 30ML SUSPENSION UDC PO (04:15)
[2018-03-09] MEDS ORDERED: ANALGESIC BALM CRM 120 GM TOP (04:30)
[2018-03-09] MEDS ORDERED: ACETAMINOPHEN 325 MG TAB PO (05:45)
[2018-03-09] MEDS ORDERED: NITROGLYCERIN 0.4 MG SUBL TABLET SL (05:45)
[2018-03-09] MEDS: HumaLOG INSULIN (NovoLOG) PER UNIT SC ×4 (07:30→21:00)
[2018-03-09] MEDS: HEPARIN SOD (PORCINE) 5000 UNITS/ML VIAL SC ×2 (08:14→22:20)
[2018-03-09] MEDS: D5W 1,000 ML IV (08:14)
[2018-03-09] MEDS: ATORVASTATIN 10 MG TAB PO (08:15)
[2018-03-09] MEDS: GABAPENTIN 100 MG CAP PO ×3 (08:15→22:14)
[2018-03-09] MEDS: ASPIRIN 81 MG ENTERIC TAB PO (08:15)
[2018-03-09] MEDS: FUROSEMIDE 20 MG TAB PO (08:15)
[2018-03-09] MEDS: DOCUSATE SODIUM 100 MG CAP PO ×2 (08:17→21:00)
[2018-03-09] MEDS: LOSARTAN 25 MG TAB PO (08:17)
[2018-03-09] MEDS: ISOSORBIDE MON. (IMDUR) 30 MG XR TAB PO (08:17)
[2018-03-09] MEDS: BISACODYL 5 MG TAB PO (08:17)
[2018-03-09] MEDS: METOPROLOL TART 25 MG TABLET PO ×2 (08:18→22:27)
[2018-03-09] MEDS: GLUCOSE 4 GM CHEW TABLET PO (10:12)
[2018-03-09 10:17] LABS: BEDSIDE GLUCOSE 59 MG/DL (83-110)
[2018-03-09 11:11] LABS: BEDSIDE GLUCOSE 99 MG/DL (83-110)
[2018-03-09 11:19] LABS: BEDSIDE GLUCOSE 70 MG/DL (83-110)
[2018-03-09 11:19] LABS: BEDSIDE GLUCOSE 92 MG/DL (83-110)
[2018-03-09 11:19] LABS: BEDSIDE GLUCOSE 91 MG/DL (83-110)
[2018-03-09 11:19] LABS: BEDSIDE GLUCOSE 115 MG/DL (83-110)
[2018-03-09] MEDS: NORCO, ANEXSIA 5/325MG TABLET (HYDROcodone/ACETAMINOPHEN) PO (11:42)
[2018-03-09 12:14] LABS: BEDSIDE GLUCOSE 77 MG/DL (83-110)
[2018-03-09 13:10] LABS: BEDSIDE GLUCOSE 94 MG/DL (83-110)
[2018-03-09 15:14] LABS: BEDSIDE GLUCOSE 83 MG/DL (83-110)
[2018-03-09 16:19] LABS: BEDSIDE GLUCOSE 76 MG/DL (83-110)
[2018-03-09 17:07] LABS: BEDSIDE GLUCOSE 64 MG/DL (83-110)
[2018-03-09 17:58] LABS: BEDSIDE GLUCOSE 82 MG/DL (83-110)
[2018-03-09 19:38] LABS: BEDSIDE GLUCOSE 102 MG/DL (83-110)
[2018-03-09] MEDS: SENNA 8.6 MG TAB (SENOKOT) PO (21:00)
[2018-03-09 21:26] LABS: BEDSIDE GLUCOSE 103 MG/DL (83-110)
[2018-03-09] MEDS: BICALUTAMIDE 50 MG TAB PO (22:13)
[2018-03-09] MEDS: SERTRALINE HCL 50 MG TAB PO (22:14)
[2018-03-09 23:49] LABS: BEDSIDE GLUCOSE 97 MG/DL (83-110)
[2018-03-10 02:17] LABS: BEDSIDE GLUCOSE 99 MG/DL (83-110)
[2018-03-10 04:30] LABS: BEDSIDE GLUCOSE 81 MG/DL (83-110)
[2018-03-10 05:45] LABS: HEMATOCRIT 28.7 % (42.0-52.0); HEMOGLOBIN 8.8 g/dl (13.5-17.5); MEAN CORPUSCULAR HEMOGLOBIN 27.6 pg (27.0-33.0); MEAN CORPUSCULAR HGB CONC 30.7 g/dl (32.0-36.5); PLATELET COUNT, AUTOMATED 190 10^3/uL (150-450); RED BLOOD COUNT 3.19 10^6/uL (4.30-6.10); RED CELL DISTRIBUTION WIDTH 16.8 % (11.5-14.5); WHITE BLOOD COUNT 7.8 10^3/uL (4.0-10.0)
[2018-03-10 06:02] LABS: ANION GAP 7 MEQ/L (8-16); BLOOD UREA NITROGEN 20 MG/DL (7-18); CALCIUM LEVEL 8.1 MG/DL (8.8-10.2); CARBON DIOXIDE LEVEL 29 MEQ/L (21-32); CHLORIDE LEVEL 101 MEQ/L (98-107); CREATININE FOR GFR 1.36 MG/DL (0.70-1.30); GLOMERULAR FILTRATION RATE 53.8 (>42); GLUCOSE, FASTING 84 MG/DL (70-100); POTASSIUM SERUM 4.2 MEQ/L (3.5-5.1); SODIUM LEVEL 137 MEQ/L (136-145)
[2018-03-10 06:32] LABS: BEDSIDE GLUCOSE 89 MG/DL (83-110)
[2018-03-10] MEDS: HumaLOG INSULIN (NovoLOG) PER UNIT SC ×4 (07:18→20:19)
[2018-03-10] MEDS: DOCUSATE SODIUM 100 MG CAP PO ×2 (09:00→20:19)
[2018-03-10] MEDS: BISACODYL 5 MG TAB PO (09:00)
[2018-03-10] MEDS: ASPIRIN 81 MG ENTERIC TAB PO (11:25)
[2018-03-10] MEDS: METOPROLOL TART 25 MG TABLET PO ×2 (11:25→20:18)
[2018-03-10] MEDS: ATORVASTATIN 10 MG TAB PO (11:25)
[2018-03-10] MEDS: GABAPENTIN 100 MG CAP PO ×3 (11:25→20:18)
[2018-03-10] MEDS: FUROSEMIDE 20 MG TAB PO (11:25)
[2018-03-10] MEDS: HEPARIN SOD (PORCINE) 5000 UNITS/ML VIAL SC ×2 (11:25→20:19)
[2018-03-10] MEDS: ISOSORBIDE MON. (IMDUR) 30 MG XR TAB PO (11:26)
[2018-03-10] MEDS: LOSARTAN 25 MG TAB PO (11:26)
[2018-03-10 11:52] LABS: BEDSIDE GLUCOSE 113 MG/DL (83-110)
[2018-03-10 16:19] LABS: BEDSIDE GLUCOSE 122 MG/DL (83-110)
[2018-03-10] MEDS: BICALUTAMIDE 50 MG TAB PO (20:18)
[2018-03-10] MEDS: SENNA 8.6 MG TAB (SENOKOT) PO (20:19)
[2018-03-10] MEDS: SERTRALINE HCL 50 MG TAB PO (20:19)
[2018-03-10 20:25] LABS: BEDSIDE GLUCOSE 150 MG/DL (83-110)
[2018-03-11 06:09] LABS: HEMATOCRIT 29.1 % (42.0-52.0); HEMOGLOBIN 9.2 g/dl (13.5-17.5); MEAN CORPUSCULAR HEMOGLOBIN 27.1 pg (27.0-33.0); MEAN CORPUSCULAR HGB CONC 31.6 g/dl (32.0-36.5); MEAN CORPUSCULAR VOLUME 85.8 fl (80.0-96.0); PLATELET COUNT, AUTOMATED 193 10^3/uL (150-450); RED BLOOD COUNT 3.39 10^6/uL (4.30-6.10); RED CELL DISTRIBUTION WIDTH 16.8 % (11.5-14.5); WHITE BLOOD COUNT 8.1 10^3/uL (4.0-10.0)
[2018-03-11 06:38] LABS: ANION GAP 9 MEQ/L (8-16); BLOOD UREA NITROGEN 22 MG/DL (7-18); CALCIUM LEVEL 8.5 MG/DL (8.8-10.2); CARBON DIOXIDE LEVEL 28 MEQ/L (21-32); CHLORIDE LEVEL 102 MEQ/L (98-107); CREATININE FOR GFR 1.27 MG/DL (0.70-1.30); GLOMERULAR FILTRATION RATE 58.2 (>42); GLUCOSE, FASTING 117 MG/DL (70-100); POTASSIUM SERUM 4.4 MEQ/L (3.5-5.1); SODIUM LEVEL 139 MEQ/L (136-145)
[2018-03-11] MEDS: NYSTATIN 100,000 UNITS/GM TOPICAL PWD 15 GM TOP ×2 (09:00→22:03)
[2018-03-11] MEDS: ATORVASTATIN 10 MG TAB PO (10:50)
[2018-03-11] MEDS: ASPIRIN 81 MG ENTERIC TAB PO (10:50)
[2018-03-11] MEDS: METOPROLOL TART 25 MG TABLET PO ×2 (10:50→22:07)
[2018-03-11] MEDS: ISOSORBIDE MON. (IMDUR) 30 MG XR TAB PO (10:51)
[2018-03-11] MEDS: DOCUSATE SODIUM 100 MG CAP PO ×2 (10:51→22:04)
[2018-03-11] MEDS: LOSARTAN 25 MG TAB PO (10:51)
[2018-03-11] MEDS: FUROSEMIDE 20 MG TAB PO (10:52)
[2018-03-11] MEDS: HEPARIN SOD (PORCINE) 5000 UNITS/ML VIAL SC ×2 (10:52→22:07)
[2018-03-11] MEDS: GABAPENTIN 100 MG CAP PO ×3 (10:52→22:04)
[2018-03-11] MEDS: BISACODYL 5 MG TAB PO (10:52)
[2018-03-11] MEDS: HumaLOG INSULIN (NovoLOG) PER UNIT SC ×4 (10:53→21:00)
[2018-03-11 11:36] LABS: BEDSIDE GLUCOSE 144 MG/DL (83-110)
[2018-03-11 16:35] LABS: BEDSIDE GLUCOSE 157 MG/DL (83-110)
[2018-03-11 21:07] LABS: BEDSIDE GLUCOSE 123 MG/DL (83-110)
[2018-03-11] MEDS: BICALUTAMIDE 50 MG TAB PO (22:03)
[2018-03-11] MEDS: NORCO, ANEXSIA 5/325MG TABLET (HYDROcodone/ACETAMINOPHEN) PO (22:04)
[2018-03-11] MEDS: SENNA 8.6 MG TAB (SENOKOT) PO (22:04)
[2018-03-11] MEDS: SERTRALINE HCL 50 MG TAB PO (22:04)
[2018-03-12] MEDS: SIMETHICONE 80 MG CHEW TAB PO (05:43)
[2018-03-12] MEDS: NORCO, ANEXSIA 5/325MG TABLET (HYDROcodone/ACETAMINOPHEN) PO (05:44)
[2018-03-12 06:03] LABS: HEMATOCRIT 30.6 % (42.0-52.0); HEMOGLOBIN 9.5 g/dl (13.5-17.5); MEAN CORPUSCULAR HEMOGLOBIN 27.4 pg (27.0-33.0); MEAN CORPUSCULAR VOLUME 88.2 fl (80.0-96.0); PLATELET COUNT, AUTOMATED 182 10^3/uL (150-450); RED BLOOD COUNT 3.47 10^6/uL (4.30-6.10); RED CELL DISTRIBUTION WIDTH 16.9 % (11.5-14.5)
[2018-03-12 06:16] LABS: ANION GAP 8 MEQ/L (8-16); BLOOD UREA NITROGEN 22 MG/DL (7-18); CALCIUM LEVEL 8.6 MG/DL (8.8-10.2); CARBON DIOXIDE LEVEL 29 MEQ/L (21-32); CHLORIDE LEVEL 102 MEQ/L (98-107); CREATININE FOR GFR 1.34 MG/DL (0.70-1.30); GLOMERULAR FILTRATION RATE 54.7 (>42); GLUCOSE, FASTING 116 MG/DL (70-100); POTASSIUM SERUM 4.2 MEQ/L (3.5-5.1); SODIUM LEVEL 139 MEQ/L (136-145)
[2018-03-12] MEDS: NYSTATIN 100,000 UNITS/GM TOPICAL PWD 15 GM TOP (09:00)
[2018-03-12] MEDS: FUROSEMIDE 20 MG TAB PO (09:06)
[2018-03-12] MEDS: ATORVASTATIN 10 MG TAB PO (09:06)
[2018-03-12] MEDS: ASPIRIN 81 MG ENTERIC TAB PO (09:06)
[2018-03-12] MEDS: BISACODYL 5 MG TAB PO (09:06)
[2018-03-12] MEDS: GABAPENTIN 100 MG CAP PO (09:07)
[2018-03-12] MEDS: LOSARTAN 25 MG TAB PO (09:07)
[2018-03-12] MEDS: METOPROLOL TART 25 MG TABLET PO (09:07)
[2018-03-12] MEDS: ISOSORBIDE MON. (IMDUR) 30 MG XR TAB PO (09:07)
[2018-03-12] MEDS: HumaLOG INSULIN (NovoLOG) PER UNIT SC ×2 (09:08→13:18)
[2018-03-12] MEDS: DOCUSATE SODIUM 100 MG CAP PO (09:08)
[2018-03-12] MEDS: HEPARIN SOD (PORCINE) 5000 UNITS/ML VIAL SC (09:08)
[2018-03-12 11:55] LABS: BEDSIDE GLUCOSE 124 MG/DL (83-110)
[2018-03-12] MEDS: FLUCONAZOLE 100 MG TAB PO (11:58)
[2018-03-13] MEDS ORDERED: FLUCONAZOLE 100 MG TAB PO (09:00)
== END 2018-03-12 14:50 | DRG 639 ==
LOC: M ED INP 04:03 → M MS5PR 03-10 20:36 → M PCU 04:54
PROVIDERS: Internal Medicine
DX: E11.649 Type 2 diabetes mellitus with hypoglycemia without coma (principal); I11.0 Hypertensive heart disease with heart failure; I50.9 Heart failure, unspecified; I49.5 Sick sinus syndrome; I25.10 Atherosclerotic heart disease of native coronary artery without angina pectoris; I48.91 Unspecified atrial fibrillation; E11.51 Type 2 diabetes mellitus with diabetic peripheral angiopathy without gangrene; Z89.511 Acquired absence of right leg below knee; Z79.82 Long term (current) use of aspirin; Z79.84 Long term (current) use of oral hypoglycemic drugs; Z79.01 Long term (current) use of anticoagulants; Z79.899 Other long term (current) drug therapy; I25.2 Old myocardial infarction; Z92.3 Personal history of irradiation; Z85.038 Personal history of other malignant neoplasm of large intestine; Z85.46 Personal history of malignant neoplasm of prostate; Z95.0 Presence of cardiac pacemaker; Z95.1 Presence of aortocoronary bypass graft; Z90.49 Acquired absence of other specified parts of digestive tract

== ENCOUNTER 2018-03-12 15:00 | Inpatient (IN) | payer MEDICARE, BC, OTHER ==
[~2018-03-12 15:00] MED LIST changes: +ANALGESIC BALM CRM 120 GM TOP; +DEXTROSE 50% 50 ML SYRINGE IV; +GLUCOSE 4 GM CHEW TABLET PO; +NORCO, ANEXSIA 5/325MG TABLET (HYDROcodone/ACETAMINOPHEN) PO
[2018-03-12 16:45] LABS: BEDSIDE GLUCOSE 118 MG/DL (83-110)
[2018-03-12] MEDS: GABAPENTIN 100 MG CAP PO ×2 (16:58→21:32)
[2018-03-12] MEDS: NORCO, ANEXSIA 5/325MG TABLET (HYDROcodone/ACETAMINOPHEN) PO (18:59)
[2018-03-12 20:11] LABS: BEDSIDE GLUCOSE 136 MG/DL (83-110)
[2018-03-12] MEDS: SERTRALINE HCL 50 MG TAB PO (21:32)
[2018-03-12] MEDS: BICALUTAMIDE 50 MG TAB PO (21:32)
[2018-03-12] MEDS: DOCUSATE SODIUM 100 MG CAP PO (21:32)
[2018-03-12] MEDS: NYSTATIN 100,000 UNITS/GM TOPICAL PWD 15 GM TOP (21:33)
[2018-03-12] MEDS: SENNA 8.6 MG TAB (SENOKOT) PO (21:33)
[2018-03-12] MEDS: METOPROLOL TART 25 MG TABLET PO (21:33)
[2018-03-12] MEDS: HEPARIN SOD (PORCINE) 5000 UNITS/ML VIAL SC (21:33)
[2018-03-12] MEDS: ACETAMINOPHEN TAB 650MG DOSE (2X325MG) PO (21:34)
[2018-03-13 06:10] LABS: BEDSIDE GLUCOSE 111 MG/DL (83-110)
[2018-03-13 06:46] LABS: BASO % 0.5 % (0.0-1.0); EOS # 0.4 10^3/uL (0.0-0.50); EOS % 4.6 % (0.0-3.0); HEMOGLOBIN 9.4 g/dl (13.5-17.5); IMMATURE GRANULOCYTE % 0.3 % (0-3.0); LYMPH # 1.6 10^3/uL (1.5-4.5); LYMPH % 19.9 % (24.0-44.0); MEAN CORPUSCULAR HEMOGLOBIN 27.5 pg (27.0-33.0); MEAN CORPUSCULAR HGB CONC 31.3 g/dl (32.0-36.5); MEAN CORPUSCULAR VOLUME 87.7 fl (80.0-96.0); MONO # 0.6 10^3/uL (0.0-0.8); MONO % 8.1 % (0.0-5.0); NEUTROPHILS # 5.2 10^3/uL (1.8-7.7); NEUTROPHILS % 66.6 % (36.0-66.0); PLATELET COUNT, AUTOMATED 184 10^3/uL (150-450); RED BLOOD COUNT 3.42 10^6/uL (4.30-6.10); RED CELL DISTRIBUTION WIDTH 16.8 % (11.5-14.5); WHITE BLOOD COUNT 7.9 10^3/uL (4.0-10.0)
[2018-03-13 07:16] LABS: ALBUMIN 2.4 GM/DL (3.2-5.2); ALBUMIN/GLOBULIN RATIO 0.57 (1.00-1.93); ALKALINE PHOSPHATASE 39 U/L (45-117); ALT/SGPT 25 U/L (12-78); ANION GAP 10 MEQ/L (8-16); AST/SGOT 27 U/L (7-37); BILIRUBIN,TOTAL 0.8 MG/DL (0.2-1.0); BLOOD UREA NITROGEN 23 MG/DL (7-18); CALCIUM LEVEL 8.7 MG/DL (8.8-10.2); CARBON DIOXIDE LEVEL 29 MEQ/L (21-32); CHLORIDE LEVEL 101 MEQ/L (98-107); GLUCOSE, FASTING 107 MG/DL (70-100); SODIUM LEVEL 140 MEQ/L (136-145); TOTAL PROTEIN 6.6 GM/DL (6.4-8.2)
[2018-03-13] MEDS: BISACODYL 5 MG TAB PO (09:00)
[2018-03-13] MEDS: NYSTATIN 100,000 UNITS/GM TOPICAL PWD 15 GM TOP ×2 (09:00→21:20)
[2018-03-13] MEDS: MIRALAX *UNIT DOSE* 17GM PACKET PO (09:00)
[2018-03-13] MEDS: ISOSORBIDE MON. (IMDUR) 30 MG XR TAB PO (09:35)
[2018-03-13] MEDS: METOPROLOL TART 25 MG TABLET PO ×2 (09:36→21:20)
[2018-03-13] MEDS: FLUCONAZOLE 100 MG TAB PO (09:36)
[2018-03-13] MEDS: GABAPENTIN 100 MG CAP PO ×3 (09:36→21:20)
[2018-03-13] MEDS: FUROSEMIDE 20 MG TAB PO (09:36)
[2018-03-13] MEDS: ASPIRIN 81 MG ENTERIC TAB PO (09:36)
[2018-03-13] MEDS: LOSARTAN 25 MG TAB PO (09:37)
[2018-03-13] MEDS: ATORVASTATIN 10 MG TAB PO (09:37)
[2018-03-13] MEDS: HEPARIN SOD (PORCINE) 5000 UNITS/ML VIAL SC ×2 (09:37→21:21)
[2018-03-13] MEDS: DOCUSATE SODIUM 100 MG CAP PO ×2 (09:38→21:00)
[2018-03-13] MEDS: FAMOTIDINE 20 MG TAB PO ×2 (10:09→21:20)
[2018-03-13 11:35] LABS: BEDSIDE GLUCOSE 140 MG/DL (83-110)
[2018-03-13 16:47] LABS: BEDSIDE GLUCOSE 137 MG/DL (83-110)
[2018-03-13] MEDS: NORCO, ANEXSIA 5/325MG TABLET (HYDROcodone/ACETAMINOPHEN) PO (18:37)
[2018-03-13 20:36] LABS: BEDSIDE GLUCOSE 154 MG/DL (83-110)
[2018-03-13] MEDS: SENNA 8.6 MG TAB (SENOKOT) PO (21:00)
[2018-03-13] MEDS: SERTRALINE HCL 50 MG TAB PO (21:20)
[2018-03-13] MEDS: BICALUTAMIDE 50 MG TAB PO (21:20)
[2018-03-14 05:52] LABS: BEDSIDE GLUCOSE 107 MG/DL (83-110)
[2018-03-14] MEDS: NORCO, ANEXSIA 5/325MG TABLET (HYDROcodone/ACETAMINOPHEN) PO ×3 (06:41→20:24)
[2018-03-14] MEDS: HEPARIN SOD (PORCINE) 5000 UNITS/ML VIAL SC ×2 (08:44→20:22)
[2018-03-14] MEDS: GABAPENTIN 100 MG CAP PO ×3 (08:44→20:21)
[2018-03-14] MEDS: METOPROLOL TART 25 MG TABLET PO ×2 (08:45→20:22)
[2018-03-14] MEDS: ISOSORBIDE MON. (IMDUR) 30 MG XR TAB PO (08:45)
[2018-03-14] MEDS: ATORVASTATIN 10 MG TAB PO (08:45)
[2018-03-14] MEDS: FAMOTIDINE 20 MG TAB PO ×2 (08:45→20:21)
[2018-03-14] MEDS: FLUCONAZOLE 100 MG TAB PO (08:45)
[2018-03-14] MEDS: MIRALAX *UNIT DOSE* 17GM PACKET PO (08:46)
[2018-03-14] MEDS: LOSARTAN 25 MG TAB PO (08:46)
[2018-03-14] MEDS: FUROSEMIDE 20 MG TAB PO (08:46)
[2018-03-14] MEDS: ASPIRIN 81 MG ENTERIC TAB PO (08:46)
[2018-03-14] MEDS: BISACODYL 5 MG TAB PO (08:47)
[2018-03-14] MEDS: DOCUSATE SODIUM 100 MG CAP PO ×2 (08:47→20:21)
[2018-03-14] MEDS: NYSTATIN 100,000 UNITS/GM TOPICAL PWD 15 GM TOP ×2 (08:47→20:22)
[2018-03-14 11:44] LABS: BEDSIDE GLUCOSE 129 MG/DL (83-110)
[2018-03-14 16:52] LABS: BEDSIDE GLUCOSE 141 MG/DL (83-110)
[2018-03-14 20:00] LABS: BEDSIDE GLUCOSE 135 MG/DL (83-110)
[2018-03-14] MEDS: BICALUTAMIDE 50 MG TAB PO (20:21)
[2018-03-14] MEDS: SERTRALINE HCL 50 MG TAB PO (20:21)
[2018-03-14] MEDS: SENNA 8.6 MG TAB (SENOKOT) PO (20:22)
[2018-03-15 05:32] LABS: BEDSIDE GLUCOSE 102 MG/DL (83-110)
[2018-03-15] MEDS: GABAPENTIN 100 MG CAP PO ×3 (08:52→20:28)
[2018-03-15] MEDS: ISOSORBIDE MON. (IMDUR) 30 MG XR TAB PO (08:52)
[2018-03-15] MEDS: HEPARIN SOD (PORCINE) 5000 UNITS/ML VIAL SC ×2 (08:52→20:27)
[2018-03-15] MEDS: FAMOTIDINE 20 MG TAB PO ×2 (08:53→20:28)
[2018-03-15] MEDS: FLUCONAZOLE 100 MG TAB PO (08:53)
[2018-03-15] MEDS: FUROSEMIDE 20 MG TAB PO (08:53)
[2018-03-15] MEDS: ASPIRIN 81 MG ENTERIC TAB PO (08:53)
[2018-03-15] MEDS: METOPROLOL TART 25 MG TABLET PO ×2 (08:53→20:28)
[2018-03-15] MEDS: ATORVASTATIN 10 MG TAB PO (08:53)
[2018-03-15] MEDS: LOSARTAN 25 MG TAB PO (08:53)
[2018-03-15] MEDS: DOCUSATE SODIUM 100 MG CAP PO ×2 (08:54→20:28)
[2018-03-15] MEDS: NYSTATIN 100,000 UNITS/GM TOPICAL PWD 15 GM TOP ×2 (08:54→20:29)
[2018-03-15] MEDS: BISACODYL 5 MG TAB PO (08:54)
[2018-03-15] MEDS: MIRALAX *UNIT DOSE* 17GM PACKET PO (08:54)
[2018-03-15 11:26] LABS: BEDSIDE GLUCOSE 115 MG/DL (83-110)
[2018-03-15 16:42] LABS: BEDSIDE GLUCOSE 126 MG/DL (83-110)
[2018-03-15 20:03] LABS: BEDSIDE GLUCOSE 141 MG/DL (83-110)
[2018-03-15] MEDS: SENNA 8.6 MG TAB (SENOKOT) PO (20:27)
[2018-03-15] MEDS: SERTRALINE HCL 50 MG TAB PO (20:27)
[2018-03-15] MEDS: BICALUTAMIDE 50 MG TAB PO (20:28)
[2018-03-16 06:38] LABS: BASO % 0.5 % (0.0-1.0); EOS # 0.5 10^3/uL (0.0-0.50); EOS % 7.4 % (0.0-3.0); HEMATOCRIT 31.3 % (42.0-52.0); HEMOGLOBIN 9.9 g/dl (13.5-17.5); IMMATURE GRANULOCYTE % 0.5 % (0-3.0); LYMPH # 1.8 10^3/uL (1.5-4.5); LYMPH % 27.2 % (24.0-44.0); MEAN CORPUSCULAR HEMOGLOBIN 27.3 pg (27.0-33.0); MEAN CORPUSCULAR HGB CONC 31.6 g/dl (32.0-36.5); MEAN CORPUSCULAR VOLUME 86.5 fl (80.0-96.0); MONO # 0.5 10^3/uL (0.0-0.8); MONO % 8.4 % (0.0-5.0); NEUTROPHILS # 3.6 10^3/uL (1.8-7.7); PLATELET COUNT, AUTOMATED 191 10^3/uL (150-450); RED BLOOD COUNT 3.62 10^6/uL (4.30-6.10); RED CELL DISTRIBUTION WIDTH 16.6 % (11.5-14.5); WHITE BLOOD COUNT 6.5 10^3/uL (4.0-10.0)
[2018-03-16 07:05] LABS: ALBUMIN 2.6 GM/DL (3.2-5.2); ALBUMIN/GLOBULIN RATIO 0.59 (1.00-1.93); ALKALINE PHOSPHATASE 41 U/L (45-117); ALT/SGPT 28 U/L (12-78); ANION GAP 8 MEQ/L (8-16); AST/SGOT 30 U/L (7-37); BILIRUBIN,TOTAL 0.6 MG/DL (0.2-1.0); BLOOD UREA NITROGEN 23 MG/DL (7-18); CALCIUM LEVEL 8.9 MG/DL (8.8-10.2); CARBON DIOXIDE LEVEL 31 MEQ/L (21-32); CHLORIDE LEVEL 101 MEQ/L (98-107); CREATININE FOR GFR 1.89 MG/DL (0.70-1.30); GLOMERULAR FILTRATION RATE 36.8 (>42); GLUCOSE, FASTING 119 MG/DL (70-100); MAGNESIUM LEVEL 2.1 MG/DL (1.8-2.4); POTASSIUM SERUM 4.5 MEQ/L (3.5-5.1); SODIUM LEVEL 140 MEQ/L (136-145)
[2018-03-16] MEDS: GABAPENTIN 100 MG CAP PO ×3 (08:51→20:36)
[2018-03-16] MEDS: FUROSEMIDE 20 MG TAB PO (08:51)
[2018-03-16] MEDS: ASPIRIN 81 MG ENTERIC TAB PO (08:51)
[2018-03-16] MEDS: DOCUSATE SODIUM 100 MG CAP PO ×2 (08:51→20:39)
[2018-03-16] MEDS: HEPARIN SOD (PORCINE) 5000 UNITS/ML VIAL SC ×2 (08:51→20:36)
[2018-03-16] MEDS: ISOSORBIDE MON. (IMDUR) 30 MG XR TAB PO (08:52)
[2018-03-16] MEDS: BISACODYL 5 MG TAB PO (08:52)
[2018-03-16] MEDS: LOSARTAN 25 MG TAB PO (08:52)
[2018-03-16] MEDS: FAMOTIDINE 20 MG TAB PO ×2 (08:52→20:36)
[2018-03-16] MEDS: ATORVASTATIN 10 MG TAB PO (08:52)
[2018-03-16] MEDS: MIRALAX *UNIT DOSE* 17GM PACKET PO (08:53)
[2018-03-16] MEDS: METOPROLOL TART 25 MG TABLET PO ×2 (08:53→20:36)
[2018-03-16] MEDS: NYSTATIN 100,000 UNITS/GM TOPICAL PWD 15 GM TOP ×2 (09:00→20:38)
[2018-03-16 11:45] LABS: BEDSIDE GLUCOSE 130 MG/DL (83-110)
[2018-03-16 16:30] LABS: BEDSIDE GLUCOSE 134 MG/DL (83-110)
[2018-03-16 20:05] LABS: BEDSIDE GLUCOSE 145 MG/DL (83-110)
[2018-03-16] MEDS: BICALUTAMIDE 50 MG TAB PO (20:36)
[2018-03-16] MEDS: SERTRALINE HCL 50 MG TAB PO (20:36)
[2018-03-16] MEDS: SENNA 8.6 MG TAB (SENOKOT) PO (20:39)
[2018-03-17 06:22] LABS: BEDSIDE GLUCOSE 107 MG/DL (83-110)
[2018-03-17 06:45] LABS: BASO # 0.1 10^3/uL (0.0-0.2); BASO % 0.8 % (0.0-1.0); EOS # 0.5 10^3/uL (0.0-0.50); EOS % 7.4 % (0.0-3.0); HEMATOCRIT 31.9 % (42.0-52.0); HEMOGLOBIN 10.2 g/dl (13.5-17.5); IMMATURE GRANULOCYTE % 0.5 % (0-3.0); LYMPH % 30.1 % (24.0-44.0); MEAN CORPUSCULAR HEMOGLOBIN 27.2 pg (27.0-33.0); MEAN CORPUSCULAR VOLUME 85.1 fl (80.0-96.0); MONO # 0.6 10^3/uL (0.0-0.8); MONO % 8.7 % (0.0-5.0); NEUTROPHILS # 3.5 10^3/uL (1.8-7.7); NEUTROPHILS % 52.5 % (36.0-66.0); PLATELET COUNT, AUTOMATED 196 10^3/uL (150-450); RED BLOOD COUNT 3.75 10^6/uL (4.30-6.10); RED CELL DISTRIBUTION WIDTH 16.5 % (11.5-14.5); WHITE BLOOD COUNT 6.6 10^3/uL (4.0-10.0)
[2018-03-17 07:05] LABS: ANION GAP 8 MEQ/L (8-16); BLOOD UREA NITROGEN 20 MG/DL (7-18); CALCIUM LEVEL 9.1 MG/DL (8.8-10.2); CARBON DIOXIDE LEVEL 28 MEQ/L (21-32); CHLORIDE LEVEL 102 MEQ/L (98-107); CREATININE FOR GFR 1.43 MG/DL (0.70-1.30); GLOMERULAR FILTRATION RATE 50.8 (>42); GLUCOSE, FASTING 112 MG/DL (70-100); MAGNESIUM LEVEL 2.1 MG/DL (1.8-2.4); SODIUM LEVEL 138 MEQ/L (136-145)
[2018-03-17] MEDS: ASPIRIN 81 MG ENTERIC TAB PO (08:15)
[2018-03-17] MEDS: ISOSORBIDE MON. (IMDUR) 30 MG XR TAB PO (08:15)
[2018-03-17] MEDS: ATORVASTATIN 10 MG TAB PO (08:15)
[2018-03-17] MEDS: FAMOTIDINE 20 MG TAB PO ×2 (08:15→20:11)
[2018-03-17] MEDS: METOPROLOL TART 25 MG TABLET PO ×2 (08:15→20:11)
[2018-03-17] MEDS: LOSARTAN 25 MG TAB PO (08:15)
[2018-03-17] MEDS: GABAPENTIN 100 MG CAP PO ×3 (08:15→20:11)
[2018-03-17] MEDS: DOCUSATE SODIUM 100 MG CAP PO ×2 (08:16→20:16)
[2018-03-17] MEDS: HEPARIN SOD (PORCINE) 5000 UNITS/ML VIAL SC ×2 (08:16→20:11)
[2018-03-17] MEDS: NYSTATIN 100,000 UNITS/GM TOPICAL PWD 15 GM TOP ×2 (08:17→20:17)
[2018-03-17] MEDS: BISACODYL 5 MG TAB PO (08:17)
[2018-03-17] MEDS: MIRALAX *UNIT DOSE* 17GM PACKET PO (08:17)
[2018-03-17 11:34] LABS: BEDSIDE GLUCOSE 169 MG/DL (83-110)
[2018-03-17 16:12] LABS: BEDSIDE GLUCOSE 147 MG/DL (83-110)
[2018-03-17 19:30] LABS: BEDSIDE GLUCOSE 180 MG/DL (83-110)
[2018-03-17] MEDS: BICALUTAMIDE 50 MG TAB PO (20:10)
[2018-03-17] MEDS: SERTRALINE HCL 50 MG TAB PO (20:11)
[2018-03-17] MEDS: NORCO, ANEXSIA 5/325MG TABLET (HYDROcodone/ACETAMINOPHEN) PO (20:12)
[2018-03-17] MEDS: SENNA 8.6 MG TAB (SENOKOT) PO (20:16)
[2018-03-18 05:55] LABS: BEDSIDE GLUCOSE 121 MG/DL (83-110)
[2018-03-18] MEDS: NORCO, ANEXSIA 5/325MG TABLET (HYDROcodone/ACETAMINOPHEN) PO ×2 (06:01→21:15)
[2018-03-18] MEDS: GABAPENTIN 100 MG CAP PO ×3 (08:49→21:14)
[2018-03-18] MEDS: FAMOTIDINE 20 MG TAB PO ×2 (08:49→21:14)
[2018-03-18] MEDS: ASPIRIN 81 MG ENTERIC TAB PO (08:49)
[2018-03-18] MEDS: ATORVASTATIN 10 MG TAB PO (08:49)
[2018-03-18] MEDS: HEPARIN SOD (PORCINE) 5000 UNITS/ML VIAL SC ×2 (08:49→21:16)
[2018-03-18] MEDS: ISOSORBIDE MON. (IMDUR) 30 MG XR TAB PO (08:50)
[2018-03-18] MEDS: METOPROLOL TART 25 MG TABLET PO ×2 (08:50→21:15)
[2018-03-18] MEDS: BISACODYL 5 MG TAB PO (08:50)
[2018-03-18] MEDS: LOSARTAN 25 MG TAB PO (08:50)
[2018-03-18] MEDS: MIRALAX *UNIT DOSE* 17GM PACKET PO (08:50)
[2018-03-18] MEDS: NYSTATIN 100,000 UNITS/GM TOPICAL PWD 15 GM TOP ×2 (08:51→21:00)
[2018-03-18] MEDS: DOCUSATE SODIUM 100 MG CAP PO ×2 (09:00→21:14)
[2018-03-18 11:34] LABS: BEDSIDE GLUCOSE 159 MG/DL (83-110)
[2018-03-18 16:28] LABS: BEDSIDE GLUCOSE 132 MG/DL (83-110)
[2018-03-18 20:15] LABS: BEDSIDE GLUCOSE 158 MG/DL (83-110)
[2018-03-18] MEDS: SENNA 8.6 MG TAB (SENOKOT) PO (21:00)
[2018-03-18] MEDS: SERTRALINE HCL 50 MG TAB PO (21:15)
[2018-03-18] MEDS: BICALUTAMIDE 50 MG TAB PO (21:15)
[2018-03-19] MEDS: NORCO, ANEXSIA 5/325MG TABLET (HYDROcodone/ACETAMINOPHEN) PO (05:45)
[2018-03-19 06:02] LABS: BEDSIDE GLUCOSE 109 MG/DL (83-110)
[2018-03-19 07:40] LABS: BASO % 0.5 % (0.0-1.0); EOS # 0.4 10^3/uL (0.0-0.50); EOS % 6.7 % (0.0-3.0); HEMATOCRIT 35.6 % (42.0-52.0); HEMOGLOBIN 11.1 g/dl (13.5-17.5); IMMATURE GRANULOCYTE % 0.3 % (0-3.0); LYMPH # 2.2 10^3/uL (1.5-4.5); LYMPH % 34.1 % (24.0-44.0); MEAN CORPUSCULAR HEMOGLOBIN 27.3 pg (27.0-33.0); MEAN CORPUSCULAR HGB CONC 31.2 g/dl (32.0-36.5); MEAN CORPUSCULAR VOLUME 87.5 fl (80.0-96.0); MONO # 0.5 10^3/uL (0.0-0.8); MONO % 8.1 % (0.0-5.0); NEUTROPHILS # 3.2 10^3/uL (1.8-7.7); NEUTROPHILS % 50.3 % (36.0-66.0); PLATELET COUNT, AUTOMATED 218 10^3/uL (150-450); RED BLOOD COUNT 4.07 10^6/uL (4.30-6.10); RED CELL DISTRIBUTION WIDTH 16.7 % (11.5-14.5); WHITE BLOOD COUNT 6.4 10^3/uL (4.0-10.0)
[2018-03-19 08:24] LABS: ANION GAP 8 MEQ/L (8-16); BLOOD UREA NITROGEN 21 MG/DL (7-18); CALCIUM LEVEL 9.2 MG/DL (8.8-10.2); CARBON DIOXIDE LEVEL 28 MEQ/L (21-32); CHLORIDE LEVEL 100 MEQ/L (98-107); CREATININE FOR GFR 1.71 MG/DL (0.70-1.30); GLOMERULAR FILTRATION RATE 41.3 (>42); GLUCOSE, FASTING 111 MG/DL (70-100); MAGNESIUM LEVEL 2.2 MG/DL (1.8-2.4); POTASSIUM SERUM 4.5 MEQ/L (3.5-5.1); SODIUM LEVEL 136 MEQ/L (136-145)
[2018-03-19] MEDS: ATORVASTATIN 10 MG TAB PO (08:28)
[2018-03-19] MEDS: FAMOTIDINE 20 MG TAB PO ×2 (08:28→20:48)
[2018-03-19] MEDS: HEPARIN SOD (PORCINE) 5000 UNITS/ML VIAL SC ×2 (08:28→20:50)
[2018-03-19] MEDS: GABAPENTIN 100 MG CAP PO ×3 (08:28→20:48)
[2018-03-19] MEDS: ASPIRIN 81 MG ENTERIC TAB PO (08:28)
[2018-03-19] MEDS: DOCUSATE SODIUM 100 MG CAP PO ×2 (08:29→20:49)
[2018-03-19] MEDS: ISOSORBIDE MON. (IMDUR) 30 MG XR TAB PO (08:29)
[2018-03-19] MEDS: METOPROLOL TART 25 MG TABLET PO ×2 (08:29→20:49)
[2018-03-19] MEDS: BISACODYL 5 MG TAB PO (08:29)
[2018-03-19] MEDS: MIRALAX *UNIT DOSE* 17GM PACKET PO (08:29)
[2018-03-19] MEDS: LOSARTAN 25 MG TAB PO (08:29)
[2018-03-19] MEDS: NYSTATIN 100,000 UNITS/GM TOPICAL PWD 15 GM TOP ×2 (08:30→20:50)
[2018-03-19 11:59] LABS: BEDSIDE GLUCOSE 127 MG/DL (83-110)
[2018-03-19 16:33] LABS: BEDSIDE GLUCOSE 121 MG/DL (83-110)
[2018-03-19 20:32] LABS: BEDSIDE GLUCOSE 161 MG/DL (83-110)
[2018-03-19] MEDS: BICALUTAMIDE 50 MG TAB PO (20:48)
[2018-03-19] MEDS: SERTRALINE HCL 50 MG TAB PO (20:48)
[2018-03-19] MEDS: SENNA 8.6 MG TAB (SENOKOT) PO (20:49)
[2018-03-20 08:55] LABS: ANION GAP 10 MEQ/L (8-16); BLOOD UREA NITROGEN 22 MG/DL (7-18); CALCIUM LEVEL 8.9 MG/DL (8.8-10.2); CARBON DIOXIDE LEVEL 28 MEQ/L (21-32); CHLORIDE LEVEL 101 MEQ/L (98-107); CREATININE FOR GFR 1.67 MG/DL (0.70-1.30); GLOMERULAR FILTRATION RATE 42.5 (>42); GLUCOSE, FASTING 123 MG/DL (70-100); POTASSIUM SERUM 4.5 MEQ/L (3.5-5.1); SODIUM LEVEL 139 MEQ/L (136-145)
[2018-03-20] MEDS: GABAPENTIN 100 MG CAP PO ×3 (09:19→20:24)
[2018-03-20] MEDS: BISACODYL 5 MG TAB PO (09:19)
[2018-03-20] MEDS: ISOSORBIDE MON. (IMDUR) 30 MG XR TAB PO (09:20)
[2018-03-20] MEDS: METOPROLOL TART 25 MG TABLET PO ×2 (09:20→20:24)
[2018-03-20] MEDS: HEPARIN SOD (PORCINE) 5000 UNITS/ML VIAL SC ×2 (09:20→21:00)
[2018-03-20] MEDS: LOSARTAN 25 MG TAB PO (09:20)
[2018-03-20] MEDS: FAMOTIDINE 20 MG TAB PO ×2 (09:20→20:23)
[2018-03-20] MEDS: ASPIRIN 81 MG ENTERIC TAB PO (09:20)
[2018-03-20] MEDS: DOCUSATE SODIUM 100 MG CAP PO (09:20)
[2018-03-20] MEDS: MIRALAX *UNIT DOSE* 17GM PACKET PO (09:21)
[2018-03-20] MEDS: ATORVASTATIN 10 MG TAB PO (09:21)
[2018-03-20] MEDS: NYSTATIN 100,000 UNITS/GM TOPICAL PWD 15 GM TOP ×2 (09:21→21:00)
[2018-03-20 11:37] LABS: BEDSIDE GLUCOSE 119 MG/DL (83-110)
[2018-03-20] MEDS: SENNA 8.6 MG TAB (SENOKOT) PO ×2 (12:37→20:23)
[2018-03-20 16:27] LABS: BEDSIDE GLUCOSE 130 MG/DL (83-110)
[2018-03-20 19:46] LABS: BEDSIDE GLUCOSE 140 MG/DL (83-110)
[2018-03-20] MEDS: SERTRALINE HCL 50 MG TAB PO (20:23)
[2018-03-20] MEDS: BICALUTAMIDE 50 MG TAB PO (20:23)
[2018-03-21 06:20] LABS: BEDSIDE GLUCOSE 133 MG/DL (83-110)
[2018-03-21] MEDS: NYSTATIN 100,000 UNITS/GM TOPICAL PWD 15 GM TOP ×2 (09:00→20:52)
[2018-03-21] MEDS: HEPARIN SOD (PORCINE) 5000 UNITS/ML VIAL SC ×2 (09:24→20:52)
[2018-03-21] MEDS: FAMOTIDINE 20 MG TAB PO ×2 (09:24→20:51)
[2018-03-21] MEDS: GABAPENTIN 100 MG CAP PO ×3 (09:24→20:51)
[2018-03-21] MEDS: LOSARTAN 25 MG TAB PO (09:24)
[2018-03-21] MEDS: BISACODYL 5 MG TAB PO (09:24)
[2018-03-21] MEDS: ATORVASTATIN 10 MG TAB PO (09:24)
[2018-03-21] MEDS: DOCUSATE SODIUM 100 MG CAP PO (09:25)
[2018-03-21] MEDS: METOPROLOL TART 25 MG TABLET PO ×2 (09:25→20:51)
[2018-03-21] MEDS: ISOSORBIDE MON. (IMDUR) 30 MG XR TAB PO (09:25)
[2018-03-21] MEDS: ASPIRIN 81 MG ENTERIC TAB PO (09:25)
[2018-03-21] MEDS: MIRALAX *UNIT DOSE* 17GM PACKET PO (09:26)
[2018-03-21 11:59] LABS: BEDSIDE GLUCOSE 133 MG/DL (83-110)
[2018-03-21 17:18] LABS: BEDSIDE GLUCOSE 178 MG/DL (83-110)
[2018-03-21 19:58] LABS: BEDSIDE GLUCOSE 163 MG/DL (83-110)
[2018-03-21] MEDS: BICALUTAMIDE 50 MG TAB PO (20:51)
[2018-03-21] MEDS: SERTRALINE HCL 50 MG TAB PO (20:51)
[2018-03-21] MEDS: SENNA 8.6 MG TAB (SENOKOT) PO (20:52)
[2018-03-22 07:41] LABS: BASO % 0.5 % (0.0-1.0); EOS # 0.3 10^3/uL (0.0-0.50); EOS % 3.7 % (0.0-3.0); HEMATOCRIT 33.4 % (42.0-52.0); HEMOGLOBIN 10.6 g/dl (13.5-17.5); IMMATURE GRANULOCYTE % 0.4 % (0-3.0); LYMPH % 27.3 % (24.0-44.0); MEAN CORPUSCULAR HEMOGLOBIN 27.5 pg (27.0-33.0); MEAN CORPUSCULAR HGB CONC 31.7 g/dl (32.0-36.5); MEAN CORPUSCULAR VOLUME 86.5 fl (80.0-96.0); MONO # 0.7 10^3/uL (0.0-0.8); MONO % 9.6 % (0.0-5.0); NEUTROPHILS # 4.3 10^3/uL (1.8-7.7); NEUTROPHILS % 58.5 % (36.0-66.0); PLATELET COUNT, AUTOMATED 177 10^3/uL (150-450); RED BLOOD COUNT 3.86 10^6/uL (4.30-6.10); RED CELL DISTRIBUTION WIDTH 16.5 % (11.5-14.5); WHITE BLOOD COUNT 7.3 10^3/uL (4.0-10.0)
[2018-03-22] MEDS: DOCUSATE SODIUM 100 MG CAP PO (08:01)
[2018-03-22] MEDS: BISACODYL 5 MG TAB PO (08:01)
[2018-03-22] MEDS: HEPARIN SOD (PORCINE) 5000 UNITS/ML VIAL SC ×2 (08:01→20:56)
[2018-03-22] MEDS: ISOSORBIDE MON. (IMDUR) 30 MG XR TAB PO (08:02)
[2018-03-22] MEDS: METOPROLOL TART 25 MG TABLET PO ×2 (08:02→20:58)
[2018-03-22] MEDS: MIRALAX *UNIT DOSE* 17GM PACKET PO (08:02)
[2018-03-22] MEDS: ATORVASTATIN 10 MG TAB PO (08:02)
[2018-03-22] MEDS: GABAPENTIN 100 MG CAP PO ×3 (08:03→20:58)
[2018-03-22] MEDS: NYSTATIN 100,000 UNITS/GM TOPICAL PWD 15 GM TOP ×2 (08:03→20:58)
[2018-03-22] MEDS: LOSARTAN 25 MG TAB PO (08:03)
[2018-03-22] MEDS: ASPIRIN 81 MG ENTERIC TAB PO (08:03)
[2018-03-22] MEDS: FAMOTIDINE 20 MG TAB PO ×2 (08:03→20:58)
[2018-03-22 08:10] LABS: ANION GAP 11 MEQ/L (8-16); BLOOD UREA NITROGEN 26 MG/DL (7-18); CALCIUM LEVEL 9.3 MG/DL (8.8-10.2); CARBON DIOXIDE LEVEL 24 MEQ/L (21-32); CHLORIDE LEVEL 103 MEQ/L (98-107); CREATININE FOR GFR 1.56 MG/DL (0.70-1.30); GLOMERULAR FILTRATION RATE 45.9 (>42); GLUCOSE, FASTING 124 MG/DL (70-100); MAGNESIUM LEVEL 2.2 MG/DL (1.8-2.4); POTASSIUM SERUM 4.6 MEQ/L (3.5-5.1); SODIUM LEVEL 138 MEQ/L (136-145)
[2018-03-22 11:36] LABS: BEDSIDE GLUCOSE 150 MG/DL (83-110)
[2018-03-22 16:42] LABS: BEDSIDE GLUCOSE 178 MG/DL (83-110)
[2018-03-22] MEDS: SERTRALINE HCL 50 MG TAB PO (20:58)
[2018-03-22] MEDS: BICALUTAMIDE 50 MG TAB PO (20:58)
[2018-03-22] MEDS: SENNA 8.6 MG TAB (SENOKOT) PO (20:59)
[2018-03-22 21:33] LABS: BEDSIDE GLUCOSE 174 MG/DL (83-110)
[2018-03-23 06:15] LABS: BEDSIDE GLUCOSE 131 MG/DL (83-110)
[2018-03-23] MEDS: GABAPENTIN 100 MG CAP PO ×3 (08:19→20:19)
[2018-03-23] MEDS: ATORVASTATIN 10 MG TAB PO (08:19)
[2018-03-23] MEDS: FAMOTIDINE 20 MG TAB PO ×2 (08:19→20:19)
[2018-03-23] MEDS: LOSARTAN 25 MG TAB PO (08:19)
[2018-03-23] MEDS: ASPIRIN 81 MG ENTERIC TAB PO (08:19)
[2018-03-23] MEDS: METOPROLOL TART 25 MG TABLET PO ×2 (08:20→20:20)
[2018-03-23] MEDS: ISOSORBIDE MON. (IMDUR) 30 MG XR TAB PO (08:20)
[2018-03-23] MEDS: BISACODYL 5 MG TAB PO (08:21)
[2018-03-23] MEDS: MIRALAX *UNIT DOSE* 17GM PACKET PO (08:21)
[2018-03-23] MEDS: HEPARIN SOD (PORCINE) 5000 UNITS/ML VIAL SC ×2 (08:21→20:21)
[2018-03-23] MEDS: NORCO, ANEXSIA 5/325MG TABLET (HYDROcodone/ACETAMINOPHEN) PO (08:21)
[2018-03-23] MEDS: DOCUSATE SODIUM 100 MG CAP PO (08:21)
[2018-03-23] MEDS: NYSTATIN 100,000 UNITS/GM TOPICAL PWD 15 GM TOP ×2 (08:22→20:21)
[2018-03-23 11:29] LABS: BEDSIDE GLUCOSE 147 MG/DL (83-110)
[2018-03-23 16:49] LABS: BEDSIDE GLUCOSE 163 MG/DL (83-110)
[2018-03-23] MEDS: SERTRALINE HCL 50 MG TAB PO (20:19)
[2018-03-23] MEDS: BICALUTAMIDE 50 MG TAB PO (20:19)
[2018-03-23] MEDS: SENNA 8.6 MG TAB (SENOKOT) PO (20:19)
[2018-03-23 21:15] LABS: BEDSIDE GLUCOSE 169 MG/DL (83-110)
[2018-03-24 06:03] LABS: BEDSIDE GLUCOSE 136 MG/DL (83-110)
[2018-03-24] MEDS: HEPARIN SOD (PORCINE) 5000 UNITS/ML VIAL SC ×2 (08:24→20:31)
[2018-03-24] MEDS: FAMOTIDINE 20 MG TAB PO ×2 (08:24→20:32)
[2018-03-24] MEDS: ATORVASTATIN 10 MG TAB PO (08:24)
[2018-03-24] MEDS: GABAPENTIN 100 MG CAP PO ×3 (08:24→20:31)
[2018-03-24] MEDS: METOPROLOL TART 25 MG TABLET PO ×2 (08:25→20:32)
[2018-03-24] MEDS: ASPIRIN 81 MG ENTERIC TAB PO (08:25)
[2018-03-24] MEDS: ISOSORBIDE MON. (IMDUR) 30 MG XR TAB PO (08:25)
[2018-03-24] MEDS: NYSTATIN 100,000 UNITS/GM TOPICAL PWD 15 GM TOP ×2 (08:26→20:32)
[2018-03-24] MEDS: LOSARTAN 25 MG TAB PO (08:26)
[2018-03-24] MEDS: MIRALAX *UNIT DOSE* 17GM PACKET PO (08:26)
[2018-03-24] MEDS: DOCUSATE SODIUM 100 MG CAP PO (08:28)
[2018-03-24] MEDS: BISACODYL 5 MG TAB PO (08:29)
[2018-03-24 11:37] LABS: BEDSIDE GLUCOSE 176 MG/DL (83-110)
[2018-03-24 16:53] LABS: BEDSIDE GLUCOSE 125 MG/DL (83-110)
[2018-03-24 19:35] LABS: BEDSIDE GLUCOSE 129 MG/DL (83-110)
[2018-03-24] MEDS: SERTRALINE HCL 50 MG TAB PO (20:31)
[2018-03-24] MEDS: SENNA 8.6 MG TAB (SENOKOT) PO (20:31)
[2018-03-24] MEDS: BICALUTAMIDE 50 MG TAB PO (20:32)
[2018-03-25 06:08] LABS: BEDSIDE GLUCOSE 121 MG/DL (83-110)
[2018-03-25] MEDS: BISACODYL 5 MG TAB PO (09:00)
[2018-03-25] MEDS: LOSARTAN 25 MG TAB PO (09:00)
[2018-03-25] MEDS: HEPARIN SOD (PORCINE) 5000 UNITS/ML VIAL SC ×2 (09:19→20:37)
[2018-03-25] MEDS: DOCUSATE SODIUM 100 MG CAP PO (09:20)
[2018-03-25] MEDS: GABAPENTIN 100 MG CAP PO ×3 (09:20→20:38)
[2018-03-25] MEDS: FAMOTIDINE 20 MG TAB PO ×2 (09:20→20:37)
[2018-03-25] MEDS: ATORVASTATIN 10 MG TAB PO (09:20)
[2018-03-25] MEDS: ASPIRIN 81 MG ENTERIC TAB PO (09:20)
[2018-03-25] MEDS: ISOSORBIDE MON. (IMDUR) 30 MG XR TAB PO (09:21)
[2018-03-25] MEDS: METOPROLOL TART 25 MG TABLET PO ×2 (09:22→20:37)
[2018-03-25] MEDS: MIRALAX *UNIT DOSE* 17GM PACKET PO (09:23)
[2018-03-25] MEDS: NYSTATIN 100,000 UNITS/GM TOPICAL PWD 15 GM TOP ×2 (09:23→20:38)
[2018-03-25 12:19] LABS: BEDSIDE GLUCOSE 201 MG/DL (83-110)
[2018-03-25 16:43] LABS: BEDSIDE GLUCOSE 170 MG/DL (83-110)
[2018-03-25 19:39] LABS: BEDSIDE GLUCOSE 188 MG/DL (83-110)
[2018-03-25] MEDS: BICALUTAMIDE 50 MG TAB PO (20:37)
[2018-03-25] MEDS: SERTRALINE HCL 50 MG TAB PO (20:37)
[2018-03-25] MEDS: SENNA 8.6 MG TAB (SENOKOT) PO (20:37)
[2018-03-26 06:22] LABS: BASO % 0.4 % (0.0-1.0); EOS # 0.3 10^3/uL (0.0-0.50); EOS % 4.3 % (0.0-3.0); HEMATOCRIT 31.6 % (42.0-52.0); HEMOGLOBIN 10.2 g/dl (13.5-17.5); IMMATURE GRANULOCYTE % 0.3 % (0-3.0); LYMPH # 1.8 10^3/uL (1.5-4.5); LYMPH % 23.8 % (24.0-44.0); MEAN CORPUSCULAR HEMOGLOBIN 27.6 pg (27.0-33.0); MEAN CORPUSCULAR HGB CONC 32.3 g/dl (32.0-36.5); MEAN CORPUSCULAR VOLUME 85.4 fl (80.0-96.0); MONO # 0.7 10^3/uL (0.0-0.8); MONO % 9.4 % (0.0-5.0); NEUTROPHILS # 4.7 10^3/uL (1.8-7.7); NEUTROPHILS % 61.8 % (36.0-66.0); PLATELET COUNT, AUTOMATED 168 10^3/uL (150-450); RED CELL DISTRIBUTION WIDTH 16.4 % (11.5-14.5); WHITE BLOOD COUNT 7.6 10^3/uL (4.0-10.0)
[2018-03-26 06:40] LABS: ANION GAP 8 MEQ/L (8-16); BLOOD UREA NITROGEN 37 MG/DL (7-18); CALCIUM LEVEL 8.7 MG/DL (8.8-10.2); CARBON DIOXIDE LEVEL 27 MEQ/L (21-32); CHLORIDE LEVEL 103 MEQ/L (98-107); CREATININE FOR GFR 1.52 MG/DL (0.70-1.30); GLOMERULAR FILTRATION RATE 47.3 (>42); GLUCOSE, FASTING 134 MG/DL (70-100); MAGNESIUM LEVEL 2.1 MG/DL (1.8-2.4); POTASSIUM SERUM 4.7 MEQ/L (3.5-5.1); SODIUM LEVEL 138 MEQ/L (136-145)
[2018-03-26] MEDS: ASPIRIN 81 MG ENTERIC TAB PO (08:54)
[2018-03-26] MEDS: ATORVASTATIN 10 MG TAB PO (08:54)
[2018-03-26] MEDS: HEPARIN SOD (PORCINE) 5000 UNITS/ML VIAL SC ×2 (08:54→20:36)
[2018-03-26] MEDS: GABAPENTIN 100 MG CAP PO ×3 (08:54→20:37)
[2018-03-26] MEDS: BISACODYL 5 MG TAB PO (08:54)
[2018-03-26] MEDS: LOSARTAN 25 MG TAB PO (08:55)
[2018-03-26] MEDS: METOPROLOL TART 25 MG TABLET PO ×2 (08:55→20:38)
[2018-03-26] MEDS: DOCUSATE SODIUM 100 MG CAP PO (08:55)
[2018-03-26] MEDS: FAMOTIDINE 20 MG TAB PO ×2 (08:55→20:38)
[2018-03-26] MEDS: ISOSORBIDE MON. (IMDUR) 30 MG XR TAB PO (08:55)
[2018-03-26] MEDS: NYSTATIN 100,000 UNITS/GM TOPICAL PWD 15 GM TOP ×2 (08:56→20:39)
[2018-03-26] MEDS: MIRALAX *UNIT DOSE* 17GM PACKET PO (08:56)
[2018-03-26] MEDS ORDERED: IBUPROFEN 400 MG TAB PO (11:00)
[2018-03-26 11:44] LABS: BEDSIDE GLUCOSE 174 MG/DL (83-110)
[2018-03-26 16:28] LABS: BEDSIDE GLUCOSE 213 MG/DL (83-110)
[2018-03-26 20:01] LABS: BEDSIDE GLUCOSE 194 MG/DL (83-110)
[2018-03-26] MEDS: ACETAMINOPHEN TAB 650MG DOSE (2X325MG) PO (20:37)
[2018-03-26] MEDS: SERTRALINE HCL 50 MG TAB PO (20:38)
[2018-03-26] MEDS: BICALUTAMIDE 50 MG TAB PO (20:38)
[2018-03-26] MEDS: SENNA 8.6 MG TAB (SENOKOT) PO (20:38)
[2018-03-27 06:29] LABS: BEDSIDE GLUCOSE 130 MG/DL (83-110)
[2018-03-27] MEDS: DOCUSATE SODIUM 100 MG CAP PO (08:57)
[2018-03-27] MEDS: GABAPENTIN 100 MG CAP PO ×3 (08:58→20:21)
[2018-03-27] MEDS: METOPROLOL TART 25 MG TABLET PO ×2 (08:58→20:21)
[2018-03-27] MEDS: ISOSORBIDE MON. (IMDUR) 30 MG XR TAB PO (08:58)
[2018-03-27] MEDS: ASPIRIN 81 MG ENTERIC TAB PO (08:58)
[2018-03-27] MEDS: ATORVASTATIN 10 MG TAB PO (08:58)
[2018-03-27] MEDS: BISACODYL 5 MG TAB PO (08:58)
[2018-03-27] MEDS: FAMOTIDINE 20 MG TAB PO ×2 (08:58→20:21)
[2018-03-27] MEDS: NYSTATIN 100,000 UNITS/GM TOPICAL PWD 15 GM TOP ×2 (08:59→20:21)
[2018-03-27] MEDS: MIRALAX *UNIT DOSE* 17GM PACKET PO (08:59)
[2018-03-27] MEDS: HEPARIN SOD (PORCINE) 5000 UNITS/ML VIAL SC ×2 (08:59→20:21)
[2018-03-27] MEDS: LOSARTAN 25 MG TAB PO (08:59)
[2018-03-27 12:08] LABS: BEDSIDE GLUCOSE 166 MG/DL (83-110)
[2018-03-27 17:27] LABS: BEDSIDE GLUCOSE 149 MG/DL (83-110)
[2018-03-27 20:16] LABS: BEDSIDE GLUCOSE 203 MG/DL (83-110)
[2018-03-27] MEDS: SENNA 8.6 MG TAB (SENOKOT) PO (20:21)
[2018-03-27] MEDS: SERTRALINE HCL 50 MG TAB PO (20:21)
[2018-03-27] MEDS: BICALUTAMIDE 50 MG TAB PO (20:21)
[2018-03-28 06:47] LABS: BEDSIDE GLUCOSE 131 MG/DL (83-110)
[2018-03-28] MEDS: ATORVASTATIN 10 MG TAB PO (08:22)
[2018-03-28] MEDS: METOPROLOL TART 25 MG TABLET PO (08:22)
[2018-03-28] MEDS: ASPIRIN 81 MG ENTERIC TAB PO (08:22)
[2018-03-28] MEDS: FAMOTIDINE 20 MG TAB PO (08:22)
[2018-03-28] MEDS: HEPARIN SOD (PORCINE) 5000 UNITS/ML VIAL SC (08:22)
[2018-03-28] MEDS: DOCUSATE SODIUM 100 MG CAP PO (08:23)
[2018-03-28] MEDS: LOSARTAN 25 MG TAB PO (08:23)
[2018-03-28] MEDS: BISACODYL 5 MG TAB PO (08:23)
[2018-03-28] MEDS: ISOSORBIDE MON. (IMDUR) 30 MG XR TAB PO (08:23)
[2018-03-28] MEDS: NYSTATIN 100,000 UNITS/GM TOPICAL PWD 15 GM TOP (08:24)
[2018-03-28] MEDS: GABAPENTIN 100 MG CAP PO (08:24)
[2018-03-28] MEDS: MIRALAX *UNIT DOSE* 17GM PACKET PO (08:24)
== END 2018-03-28 10:15 | disposition home health service (06) | DRG 560 ==
LOC: M PM&R 03-27 18:47
PROVIDERS: Physical Medicine & Rehabilitation
DX: Z47.81 Encounter for orthopedic aftercare following surgical amputation (principal); I50.22 Chronic systolic (congestive) heart failure; N17.9 Acute kidney failure, unspecified; I13.0 Hypertensive heart and chronic kidney disease with heart failure and stage 1 through stage 4 chronic kidney disease, or unspecified chronic kidney disease; Z89.511 Acquired absence of right leg below knee; I48.91 Unspecified atrial fibrillation; I25.10 Atherosclerotic heart disease of native coronary artery without angina pectoris; I25.2 Old myocardial infarction; Z95.0 Presence of cardiac pacemaker; E11.649 Type 2 diabetes mellitus with hypoglycemia without coma; I73.9 Peripheral vascular disease, unspecified; F32.9 Major depressive disorder, single episode, unspecified; Z79.82 Long term (current) use of aspirin; Z79.899 Other long term (current) drug therapy; N18.3 Chronic kidney disease, stage 3 (moderate); K59.00 Constipation, unspecified; R07.9 Chest pain, unspecified; E11.51 Type 2 diabetes mellitus with diabetic peripheral angiopathy without gangrene